=== PATIENT | female | born 1990 | race Caucasian/White ===

== ENCOUNTER 2017-05-25 10:24 | Emergency (ER) | payer BC, OTHER ==
[2017-05-25 10:40] VITALS: RESP 18
[2017-05-25] MEDS ORDERED: cefTRIAXone 1,000 MG VIAL (IM USE) IM STA (10:57)
--- NOTE | 2017-05-25 11:01 | ED ---
General Adult HPI - General Chief complaint: Nausea/Vomiting/Diarrhea Stated complaint: Cold/vomiting Time Seen by Provider: 05/25/17 10:49 Source: patient, RN notes reviewed Mode of arrival: ambulatory Limitations: no limitations - History of Present Illness Initial comments: Patient will be 27-year-old female who is approximately 18 weeks , presents to the emergency room today with a chief complaint of cough congestion over the last 4 days. Patient does admit to also having some symptoms of nausea vomiting diarrhea that started last night. Patient states she is worried about a pneumonia or bronchitis as she states that her mother had similar symptoms this past week. She states that her mother is Better at home. She denies any other complaints or symptoms at this time. Denies any vaginal bleeding discharge. Denies abdominal pain. Patient denies any recent shortness of breath, chest pain, back pain, abdominal pain, numbness or tingling, dysuria or hematuria, constipation, headaches or visual changes, or any other complaints. - Related Data Home Medications Medication Instructions Recorded Confirmed Pnv,Calcium 72/Iron/Folic Acid 1 each PO DAILY 08/22/15 02/28/16 [ Plus Tablet] Acyclovir [Zovirax] 600 mg PO TID 02/03/16 02/28/16 Previous Rx's Medication Instructions Recorded Ibuprofen [Motrin] 600 mg PO Q6HR PRN #30 tab 03/01/16 Azithromycin [Zithromax Z-pack] 0 mg PO DIRECTED #6 tab 05/25/17 Allergies Allergy/AdvReac Type Severity Reaction Status Date / Time No Known Allergies Allergy Verified 05/25/17 10:39 Review of Systems ROS Statement: Those systems with pertinent positive or pertinent negative responses have been documented in the HPI. ROS Other: All systems not noted in ROS Statement are negative. Past Medical History Past Medical History: No Reported History Additional Past Medical History / Comment(s): Ob history: First was an elective termination. This is her second and she has had care with me since 12 weeks. A+, abs neg, Rub Imm, RPR NR, Hep B neg. GBS neg. Abnormal 1hr but normal 3hr GTT. History of Any Multi-Drug Resistant Organisms: None Reported Past Surgical History: No Surgical Hx Reported Past Psychological History: No Psychological Hx Reported Smoking Status: Current every day smoker Past Alcohol Use History: None Reported Past Drug Use History: None Reported - Past Family History Mother Family Medical History: No Reported History General Exam - General Exam Comments Initial Comments: General: The patient is awake and alert, in no distress, and does not appear acutely ill. Eye: Pupils are equal, round and reactive to light, extra-ocular movements are intact. No nystagmus. There is normal conjunctiva bilaterally. No signs of icterus. Ears, nose, mouth and throat: There are moist mucous membranes and no oral lesions. Neck: The neck is supple, there is no tenderness or JVD. Cardiovascular: There is a regular rate and rhythm. No murmur, rub or gallop is appreciated. Respiratory: Lungs are clear to auscultation, respirations are non-labored, breath sounds are equal. No wheezes, stridor, rales, or rhonchi. Gastrointestinal: Soft, non-distended, non-tender abdomen without masses or organomegaly noted. There is no rebound or guarding present. No CVA tenderness. Bowel sounds are unremarkable. Musculoskeletal: Normal ROM, no tenderness. Strength 5/5. Sensation intact. Pulses equal bilaterally 2+. Neurological: A&O x 3. CN II-XII intact, There are no obvious motor or sensory deficits. Coordination appears grossly intact. Speech is normal. Skin: Skin is warm and dry and no rashes or lesions are noted. Psychiatric: Cooperative, appropriate mood & affect, normal judgment. Limitations: no limitations Course Vital Signs 05/25/17 10:37 Temperature 97.3 F L Pulse Rate 73 Respiratory 18 Rate Blood Pressure 110/65 O2 Sat by Pulse 100 Oximetry Medical Decision Making - Medical Decision Making Patient 80 weeks.. No abdominal pain. No vaginal bleeding or discharge. Has had nausea vomiting diarrhea that started yesterday. Abdomen soft nontender on exam. Patient's vital stable. Does admit to cough congestion over the last 4 days. Sputum production. Patient will be covered with azithromycin for a bronchitis infection. Patient requesting shot of antibiotics in the emergency room given dose of Rocephin prior to discharge advised follow-up with her OB/ [employer]. Advised return if symptoms increase worsen or for any other concerns. Disposition Clinical Impression: Acute bronchitis Disposition: HOME SELF-CARE Condition: Good Instructions: Acute Bronchitis (ED) Additional Instructions: Please use medication as discussed. Please follow-up with family doctor in the next 2 days of symptoms have not improved. Please return to emergency room if the symptoms increase or worsen or for any other concerns. Prescriptions: Azithromycin [Zithromax Z-pack] 0 mg PO DIRECTED #6 tab Referrals: Kristen Jacobsen DO [Primary Care Provider] - 1-2 days Time of Disposition: 10:59
[2017-05-25 11:49] LABS: Appearance,Urine Cloudy (Clear); Bilirubin,Urine Negative (Negative); Blood,Urine Negative (Negative); Color,Urine Yellow; Glucose,Urine (UA) Negative (Negative); Ketones,Urine Negative (Negative); Leukocyte Esterase,Urine Negative (Negative); Mucus,Urine Rare /hpf; Nitrite,Urine Negative (Negative); Protein,Urine Negative (Negative); Squamous Epithelial Cell,Urine 13 /hpf (0-4); Urobilinogen,Urine <2.0 mg/dL (<2.0)
[2017-05-25 12:45] VITALS: BP 95/63; PULSE 71; TEMP 98.7
== END 2017-05-25 12:43 | disposition home or self-care (01) ==
LOC: EC 10:24
DX: O99.512 Diseases of the respiratory system complicating pregnancy, second trimester (principal); J20.9 Acute bronchitis, unspecified; O21.9 Vomiting of pregnancy, unspecified; O26.892 Other specified pregnancy related conditions, second trimester; R19.7 Diarrhea, unspecified; O99.332 Smoking (tobacco) complicating pregnancy, second trimester; F17.200 Nicotine dependence, unspecified, uncomplicated; Z79.899 Other long term (current) drug therapy; Z3A.18 18 weeks gestation of pregnancy
CPT/HCPCS: 99284; 96372; 81001; 87086; J0696

== ENCOUNTER 2017-10-09 20:57 | Outpatient (CLI) | payer OTHER ==
[2017-10-09 21:29] VITALS: BP 116/62; PULSE 72; RESP 16; TEMP 96.8
--- NOTE | 2017-10-10 07:29 | P.MSEPDOC ---
Presenting Problems - Arrival Data Date of Arrival on Unit: 10/09/17 Time of Arrival on Unit: 20:57 Mode of Transport: Ambulatory - Complaint OB-Reason for Admission/Chief Complaint: Observation/Evaluation Comment: pain since 1699 Medical History - Information : 3 Para: 1 Term: 1 : 0 Abortions: Spontaneous or Elective: 1 Number of Living Children: 1 - Gestational Age Gestational Age by JASMIN (wks/days): 37 Weeks and 3 Days - History Sexually Transmitted Diseases: HSV Review of Systems - Review of Systems Constitutional: No problems Breast: No problems ENT: No problems Cardiovascular: No problems Respiratory: No problems Gastrointestinal: No problems Genitourinary: No problems Musculoskeletal: No problems Neurological: No problems Skin: No problems Vital Signs - Temperature Temperature: 96.8 F Temperature Source: Temporal Artery Scan - Pulse Right Sitting Brachial Pulse Rate: 72 Pulse Assessment Method: Automatic Cuff - Respirations Respiratory Rate: 16 Oxygen Delivery Method: Room Air O2 Sat by Pulse Oximetry: 99 - Blood Pressure Right Arm Sitting Blood Pressure: 116/62 Blood Pressure Mean: 80 Blood Pressure Source: Automatic Cuff Medical Screen Scoring (Pre) - Cervical Exam Dilation: 1-3 cm = 1 Membranes: Intact - Maternal Vital Signs Maternal Temperature: N/A Maternal Blood Pressure: N/A Signs of Preeclampsia: N/A Maternal Respirations: N/A - Total Score Total Score (Pre): 1 Medical Screen Scoring (Post) - Uterine Contractions Frequency: N/A Duration: N/A Intensity: N/A - Maternal Vital Signs Maternal Temperature: N/A Maternal Blood Pressure: N/A Signs of Preeclampsia: N/A Maternal Respirations: N/A - Maternal Trauma Maternal Trauma: N/A - Assessment Heart Rate: 135 Heart Rate - NICHD Category: Category I (Normal) = 0 NST: Reactive Position: N/A Station: N/A - Total Score Total Score (Post): 0 - Post Treatment Level of Risk Post Treatment Level of Risk: Low (0-5) Physician Notification (Post) - Physician Notified Physician Notified Date: 10/09/17 Physician Notified Time: 21:45 Physician/Practitioner Notified:: DR HUBBARD New Order Received: Yes - Notification Comment Comment: pt is to keep apt for Saturday 10/14 Disposition - Disposition OB Disposition: Discharge to home, Written follow up instructions reviewed Discharge Date: 10/09/17 Discharge Time: 22:00 I agree with the RN Medical Screening Exam: Yes Risk & Benefit of care provided described in d/c instruction: Yes Diagnosis: FALSE LABOR AT OR AFTER 37 COMPLETED WEEKS OF GESTATION
== END 2017-10-09 22:00 | disposition home or self-care (01) ==
LOC: FBPOP 20:57
PROVIDERS: ATTEND Obstetrics & Gynecology
DX: O47.1 False labor at or after 37 completed weeks of gestation (principal); Z3A.37 37 weeks gestation of pregnancy
CPT/HCPCS: 59025; G0463; 99213

== ENCOUNTER 2017-10-12 06:34 | Emergency (ER) | payer OTHER ==
[2017-10-12 06:42] VITALS: BP 112/56; PULSE 78; RESP 18; TEMP 97.9
--- NOTE | 2017-10-12 07:19 | ED ---
General Adult HPI - General Chief complaint: ENT Stated complaint: ENT Time Seen by Provider: 10/12/17 07:00 Source: patient, RN notes reviewed Mode of arrival: ambulatory Limitations: no limitations - History of Present Illness Initial comments: This is a 27 year old female presents emergency Department 9 months . Patient comes in complaining of a sore throat and some ear pressure. Patient also states she has some nasal congestion. Patient states his been ongoing for a few days. Patient denies any difficulty breathing shortness breath. Patient denies any cough or chills. Patient denies any recent fever. Patient denies chest pain or palpitations. Patient denies any swelling to her legs or calf tenderness. - Related Data Previous Rx's Medication Instructions Recorded Amoxicillin 500 mg PO Q8H #30 capsule 10/12/17 Allergies Allergy/AdvReac Type Severity Reaction Status Date / Time No Known Allergies Allergy Verified 05/25/17 12:00 Review of Systems ROS Statement: Those systems with pertinent positive or pertinent negative responses have been documented in the HPI. ROS Other: All systems not noted in ROS Statement are negative. Past Medical History Past Medical History: No Reported History Additional Past Medical History / Comment(s): Ob history: First was an elective termination. This is her second and she has had care with me since 12 weeks. A+, abs neg, Rub Imm, RPR NR, Hep B neg. GBS neg. Abnormal 1hr but normal 3hr GTT. History of Any Multi-Drug Resistant Organisms: None Reported Past Surgical History: No Surgical Hx Reported Past Psychological History: No Psychological Hx Reported Smoking Status: Current every day smoker Past Alcohol Use History: None Reported Past Drug Use History: None Reported - Past Family History Mother Family Medical History: No Reported History General Exam - General Exam Comments Initial Comments: GENERAL: Patient is well-developed and well-nourished. Patient is nontoxic and well- hydrated and is in mild distress. ENT: Neck is soft and supple. Oropharynx is clear. Moist mucous membranes. Neck has full range of motion without eliciting any pain. EYES: The sclera were anicteric and conjunctiva were pink and moist. Extraocular movements were intact and pupils were equal round and reactive to light. Eyelids were unremarkable. PULMONARY: Unlabored respirations. Good breath sounds bilaterally. No audible rales rhonchi or wheezing was noted. CARDIOVASCULAR: There is a regular rate and rhythm without any murmurs gallops or rubs. ABDOMEN: Soft and nontender with normal bowel sounds. No palpable organomegaly was noted. There is no palpable pulsatile mass. SKIN: Skin is clear with no lesions or rashes and otherwise unremarkable. NEUROLOGIC: Patient is alert and oriented x3. Cranial nerves II through XII are grossly intact. Motor and sensory are also intact. Normal speech, volume and content. Symmetrical smile. MUSCULOSKELETAL: Normal extremities with adequate strength and full range of motion. No lower extremity swelling or edema. No calf tenderness. LYMPHATICS: Cervical lymphadenopathy anterior and posterior PSYCHIATRIC: Normal psychiatric evaluation. Normal interpersonal interactions appears functionally intact in deals appropriately with others. No signs of depression. No signs of anxiety. Limitations: no limitations Course Vital Signs 10/12/17 06:39 Temperature 97.9 F Pulse Rate 78 Respiratory 18 Rate Blood Pressure 112/56 O2 Sat by Pulse 100 Oximetry Disposition Clinical Impression: Pharyngitis Disposition: HOME SELF-CARE Condition: Good Instructions: Pharyngitis (ED) Prescriptions: Amoxicillin 500 mg PO Q8H #30 capsule Is patient prescribed a controlled substance at d/c from ED?: No Referrals: Kristen Jacobsen DO [Primary Care Provider] - 1-2 days Time of Disposition: 07:19
== END 2017-10-12 07:51 | disposition home or self-care (01) ==
LOC: EC 06:34
DX: O99.513 Diseases of the respiratory system complicating pregnancy, third trimester (principal); J02.9 Acute pharyngitis, unspecified; O99.89 Other specified diseases and conditions complicating pregnancy, childbirth and the puerperium; R09.81 Nasal congestion; O99.333 Smoking (tobacco) complicating pregnancy, third trimester; F17.200 Nicotine dependence, unspecified, uncomplicated; Z67.10 Type A blood, Rh positive; Z3A.39 39 weeks gestation of pregnancy
CPT/HCPCS: 99282

== ENCOUNTER 2017-10-24 08:21 | Inpatient (IN) | payer OTHER ==
[2017-10-24] MEDS ORDERED: CARBOPROST TROMETHAMINE 250 MCG/ML 1 ML AMP IM PRN (08:55)
[2017-10-24] MEDS ORDERED: OXYTOCIN 10 UNIT/ML 1 ML VIAL IM PRN (08:55)
[2017-10-24] MEDS ORDERED: METHYLERGONOVINE 0.2 MG/ML 1 ML AMP IM PRN (08:55)
[2017-10-24] MEDS ORDERED: TERBUTALINE 1 MG/ML VIAL SQ PRN (08:55)
[2017-10-24] MEDS ORDERED: LIDOCAINE 1% (PF) 10 MG/ML (30 ML SDV) SQ PRN (08:55)
[2017-10-24] MEDS: LACTATED RINGERS 1,000 ML IV SCH ×2 (09:23→10:41)
[2017-10-24 09:29] LABS: Basophils # (A) 0.1 k/uL (0-0.2); Basophils % (A) 0 %; Eosinophils # (A) 0.2 k/uL (0-0.7); Eosinophils % (A) 1 %; HCT 35.4 % (34.0-46.0); Lymphocytes # (A) 3.6 k/uL (1.0-4.8); Lymphocytes % (A) 20 %; MCH 30.2 pg (25.0-35.0); MCV 88.7 fL (80.0-100.0); Monocytes # (A) 1.2 k/uL (0-1.0); Monocytes % (A) 7 %; Neutrophils # (A) 12.9 k/uL (1.3-7.7); Neutrophils % (A) 71 %; Platelet Count 296 k/uL (150-450); RBC 3.99 m/uL (3.80-5.40); RDW 13.5 % (11.5-15.5); WBC 18.2 k/uL (3.8-10.6)
[2017-10-24] MEDS ORDERED: BUPIVACAINE (PF) 0.25% 30 ML VIAL ONE (10:18)
[2017-10-24] MEDS ORDERED: fentaNYL (PF) 50 MCG/ML 5 ML AMP ONE (10:18)
[2017-10-24] MEDS ORDERED: SODIUM CHLORIDE 0.9% 100 ML BAG ONE (10:18)
[2017-10-24] MEDS ORDERED: ROPIVACAINE 100 MG, fentaNYL (PF) 200 MCG in SODIUM CHLORIDE 0.9% 76 ML EPIDURAL ONE (10:48)
[2017-10-24 11:42] VITALS: BMI 26.6
[2017-10-24] MEDS ORDERED: diphenhydrAMINE 25 MG CAP PO PRN (13:14)
[2017-10-24] MEDS ORDERED: SIMETHICONE 80 MG CHEWABLE PO PRN (13:14)
[2017-10-24] MEDS ORDERED: LANOLIN CREAM 5 GM TUBE TOPICAL PRN (13:14)
[2017-10-24] MEDS ORDERED: HYDROCORTISONE 2.5% RECTAL CREAM 30 GM TUBE RECTAL PRN (13:14)
[2017-10-24] MEDS ORDERED: diphenhydrAMINE 50 MG/ML 1 ML VIAL IVP PRN ×2 (13:14)
[2017-10-24] MEDS ORDERED: WITCH HAZEL 1 EACH MED..PAD TOPICAL PRN (13:14)
[2017-10-24] MEDS ORDERED: diphenhydrAMINE 50 MG CAP PO PRN (13:14)
[2017-10-24] MEDS ORDERED: ZOLPIDEM 5 MG TAB PO PRN (13:14)
[2017-10-24] MEDS ORDERED: BENZOCAINE/MENTHOL SPRAY 1 GM/SPRAY AEROSOL TOPICAL PRN (13:14)
[2017-10-24] MEDS ORDERED: OXYTOCIN 20 UNITS/1000 ML NS 1,000 ML IV SCH (13:15)
--- NOTE | 2017-10-24 13:18 | P.HPOB ---
History of Present Illness H&P Date: 10/24/17 Chief Complaint: SROM 27-year-old presented at 39 weeks and 4 days with spontaneous rupture membranes at 2330 on 10/23/2017. She presented on 10/24/2017 around 9 AM, she was patti every 2-4 minutes. Her cervix was 5 centers, 90% effaced, -2 station. heart tones 130-135 with moderate variability and reactive. Review of Systems All systems: negative Constitutional: Denies chills, Denies fever Eyes: denies blurred vision, denies pain Ears, nose, mouth and throat: Denies headache, Denies sore throat Cardiovascular: Denies chest pain, Denies shortness of breath Respiratory: Denies cough Gastrointestinal: Denies abdominal pain, Denies diarrhea, Denies nausea, Denies vomiting Genitourinary: Denies dysuria, Denies hematuria Musculoskeletal: Denies myalgias Integumentary: Denies pruritus, Denies rash Neurological: Denies numbness, Denies weakness Psychiatric: Denies anxiety, Denies depression Endocrine: Denies fatigue, Denies weight change Past Medical History Past Medical History: No Reported History Additional Past Medical History / Comment(s): Ob history: First was an elective termination. Second was a vaginal delivery, 8 pounds. A+ , abs neg, Rub Imm, RPR NR, Hep B neg. GBS neg. normal 1 hour. History of Any Multi-Drug Resistant Organisms: None Reported Past Surgical History: No Surgical Hx Reported Past Anesthesia/Blood Transfusion Reactions: No Reported Reaction Past Psychological History: No Psychological Hx Reported Smoking Status: Current every day smoker Past Alcohol Use History: None Reported Past Drug Use History: None Reported - Past Family History Mother Family Medical History: No Reported History Medications and Allergies Home Medications Medication Instructions Recorded Confirmed Type RX: Acyclovir [Zovirax] 200 mg PO TID 10/24/17 10/24/17 History Allergies Allergy/AdvReac Type Severity Reaction Status Date / Time No Known Allergies Allergy Verified 10/24/17 08:42 Exam Osteopathic Statement: *. No significant issues noted on an osteopathic structural exam other than those noted in the History and Physical/Consult. - Vital Signs Vital signs: Vital Signs Temp Pulse Resp BP 10/24/17 08:49 97.7 F 91 16 110/66 Intake and Output 10/23/17 10/24/17 10/24/17 22:59 06:59 14:59 Other: Weight 70.307 kg Heart: Regular rate and rhythm Lungs: Clear to auscultation bilaterally Abdomen: Soft, nontender Extremities: Negative Homans sign Results Result Diagrams: 10/24/17 09:15 Abnormal Lab Results - Last 24 Hours (Table) 10/24/17 Range/Units 09:15 WBC 18.2 H (3.8-10.6) k/uL Neutrophils # 12.9 H (1.3-7.7) k/uL Monocytes # 1.2 H (0-1.0) k/uL Assessment and Plan (1) Spontaneous rupture of membranes Current Visit: Yes Status: Acute Code(s): [id number] - SNOMED Code(s): 887335441 (2) Normal labor Current Visit: No Status: Resolved Code(s): O80 - ENCOUNTER FOR FULL-TERM UNCOMPLICATED DELIVERY; Z37.9 - OUTCOME OF DELIVERY, UNSPECIFIED SNOMED Code(s ): 88501220 Plan: 1. Expectant management 2. Anticipate normal vaginal delivery
--- NOTE | 2017-10-24 13:20 | P.PROBDLV ---
Vaginal Delivery Note - . Vaginal Delivery Note: 27-year-old presented at 39 weeks and 4 days in labor and with spontaneous rupture of membranes. Her cervix was 5 cm dilated, 90% effaced, and -2 station. She is patti every 2-4 minutes. heart tones 100 3135 with moderate variability and reactive. She did get an epidural and was comfortable. Her cervix was completely dilated at 1255. She pushed, delivered a viable female over intact perineum under epidural anesthesia at 1300. Head delivered OA, anterior shoulder delivered gentle downward guidance followed by posterior shoulder and rest of body. Nose and mouth bulb suctioned , cord clamped and cut, placed mother's abdomen. Apgars 9, 9, weight 7 lbs. 4 oz. Assented delivered spontaneously, intact with three-vessel cord at 1302. Vagina, cervix, perineum inspected. First-degree midline laceration and right labial laceration were repaired with 3-0 Vicryl. Estimated blood loss 150 mL. Mother and baby in stable condition.
[2017-10-24] MEDS: IBUPROFEN 600 MG TAB PO PRN (20:49)
[2017-10-24] MEDS: SENNOSIDES-DOCUSATE SODIUM 1 EACH TAB PO SCH (20:50)
[2017-10-24] MEDS: ACETAMINOPHEN TAB 325 MG TAB PO PRN (23:28)
[2017-10-25] MEDS: IBUPROFEN 600 MG TAB PO PRN ×2 (02:24→10:05)
[2017-10-25 07:48] LABS: Basophils % (A) 0 %; Eosinophils # (A) 0.2 k/uL (0-0.7); Eosinophils % (A) 1 %; HCT 32.6 % (34.0-46.0); HGB 10.9 gm/dL (11.4-16.0); Lymphocytes # (A) 3.8 k/uL (1.0-4.8); Lymphocytes % (A) 22 %; MCHC 33.5 g/dL (31.0-37.0); MCV 89.4 fL (80.0-100.0); Mean Platelet Volume 8.9; Monocytes % (A) 6 %; Neutrophils % (A) 69 %; Platelet Count 280 k/uL (150-450); RBC 3.65 m/uL (3.80-5.40); RDW 13.7 % (11.5-15.5); WBC 17.3 k/uL (3.8-10.6)
[2017-10-25] MEDS: SENNOSIDES-DOCUSATE SODIUM 1 EACH TAB PO SCH (08:15)
[2017-10-25] MEDS: ACETAMINOPHEN TAB 325 MG TAB PO PRN (08:15)
[2017-10-25 08:35] VITALS: BP 118/66; PULSE 84; RESP 16; TEMP 98.6
--- NOTE | 2017-10-25 08:56 | P.DS ---
Providers Date of admission: 10/24/17 08:47 Expected date of discharge: 10/25/17 Attending physician: Cassi Burns Primary care physician: Stated None - Discharge Diagnosis(es) (1) Spontaneous rupture of membranes Current Visit: Yes Status: Resolved (2) Normal vaginal delivery Current Visit: No Status: Acute Hospital Course: Patient presented in active labor with spontaneous rupture membranes. She underwent normal vaginal delivery. Her course was uncomplicated. She'll be discharged home day #1 in stable condition to follow-up with me in 6 weeks. Plan - Discharge Summary New Discharge Prescriptions: New Ibuprofen [Motrin] 600 mg PO Q6HR PRN #30 tab PRN Reason: Mild Pain Or Fever >= 100.5 No Action Acyclovir [Zovirax] 200 mg PO TID Discharge Medication List Acyclovir [Zovirax] 200 mg PO TID 10/24/17 [History] Ibuprofen [Motrin] 600 mg PO Q6HR PRN #30 tab 10/25/17 [Rx] Follow up Appointment(s)/Referral(s): Cassi Burns DO [Doctor of Osteopathic Medicine] - 6 Weeks Discharge Disposition: HOME SELF-CARE
--- NOTE | 2017-10-25 09:11 | P.MSEPDOC ---
Presenting Problems - Arrival Data Date of Arrival on Unit: 10/24/17 Time of Arrival on Unit: 09:00 Mode of Transport: Ambulatory - Complaint OB-Reason for Admission/Chief Complaint: Possible Onset of Labor Medical History - Information : 3 Para: 1 Term: 1 : 0 Abortions: Spontaneous or Elective: 1 Number of Living Children: 1 - Gestational Age Gestational Age by JASMIN (wks/days): 39 Weeks and 4 Days - History Complications: Smoker Review of Systems - Review of Systems Constitutional: No problems Breast: No problems ENT: No problems Cardiovascular: No problems Respiratory: No problems Gastrointestinal: No problems Genitourinary: No problems Musculoskeletal: No problems Neurological: No problems Skin: No problems Vital Signs - Temperature Temperature: 98.6 F Temperature Source: Oral - Pulse Right Brachial Pulse Rate: 84 Pulse Assessment Method: Automatic Cuff - Respirations Respiratory Rate: 16 Oxygen Delivery Method: Room Air - Blood Pressure Right Arm Blood Pressure: 118/66 Blood Pressure Mean: 83 Blood Pressure Source: Automatic Cuff Medical Screen Scoring (Pre) - Cervical Exam Dilation: 4-7 cm = 2 Effacement: More than 50% = 2 Membranes: Ruptured = 3 - Uterine Contractions Frequency: > or = 36 weeks =2 Duration: > 40 seconds = 2 Intensity: Contraction palpated strong = 1 - Maternal Vital Signs Maternal Temperature: N/A Maternal Blood Pressure: N/A Signs of Preeclampsia: N/A Maternal Respirations: N/A - Pain Assessment Pain Location and Character: Abdomen Pain Scale Used: Numeric (1 - 10) Pain Intensity: 8 Pain Management Goal: 2 Pain Description: *Acute Pain Radiation Location: na Pain Frequency: Intermittent Pain Duration: 2 Pain Duration Units: Minutes Pain Behavior: Vocalization Pain Aggravating Factors: None Non-Pharmacological Interventions: Reduce Environmental Stimuli - Maternal Trauma Maternal Trauma: N/A - Assessment Baseline FHR: 125 Heart Rate - NICHD Category: Category I (Normal) = 0 NST: Reactive Position: N/A - Total Score Total Score (Pre): 12 - Level of Risk Level of Risk: High (10+) Physician Notification (Pre) - Physician Notified Physician Notified Date: 10/24/17 Physician Notified Time: 08:53 Physician/Practitioner Notifed:: Dr. Burns Spoke With: Dr. Burns New Order Received: Yes - Notification Comment Comment: admit for labor Disposition - Disposition OB Disposition: Admit I agree with the RN Medical Screening Exam: Yes Risk & Benefit of care provided described in d/c instruction: Yes Diagnosis: ENCOUNTER FOR FULL-TERM UNCOMPLICATED DELIVERY
== END 2017-10-25 13:10 | disposition home or self-care (01) | DRG 774 ==
LOC: FBPOP 08:21 → 4FBP 08:47
PROVIDERS: ADMIT Obstetrics & Gynecology; ATTEND Obstetrics & Gynecology
PROC: 10E0XZZ Delivery of Products of Conception, External Approach (ICD-10-PCS; principal; 2017-10-24)
PROC: 0HQ9XZZ Repair Perineum Skin, External Approach (ICD-10-PCS; 2017-10-24)
PROC: 00HU33Z Insertion of Infusion Device into Spinal Canal, Percutaneous Approach (ICD-10-PCS; 2017-10-24)
PROC: 3E0R3BZ Introduction of Anesthetic Agent into Spinal Canal, Percutaneous Approach (ICD-10-PCS; 2017-10-24)
DX: O70.0 First degree perineal laceration during delivery (principal); O98.319 Other infections with a predominantly sexual mode of transmission complicating pregnancy, unspecified trimester; Z37.0 Single live birth; O99.334 Smoking (tobacco) complicating childbirth; F17.200 Nicotine dependence, unspecified, uncomplicated; Z71.6 Tobacco abuse counseling; Z3A.39 39 weeks gestation of pregnancy; Z79.899 Other long term (current) drug therapy
CPT/HCPCS: 59025; 84112; 85025; 99213

== ENCOUNTER 2018-06-11 06:18 | Emergency (ER) | payer OTHER ==
[2018-06-11 07:18] LABS: Basophils % (A) 0 %; Eosinophils # (A) 0.3 k/uL (0-0.7); Eosinophils % (A) 3 %; HCT 43.6 % (34.0-46.0); Lymphocytes # (A) 2.7 k/uL (1.0-4.8); Lymphocytes % (A) 26 %; MCHC 32.2 g/dL (31.0-37.0); MCV 90.1 fL (80.0-100.0); Mean Platelet Volume 7.4; Monocytes # (A) 0.5 k/uL (0-1.0); Monocytes % (A) 5 %; Neutrophils # (A) 6.9 k/uL (1.3-7.7); Neutrophils % (A) 65 %; Platelet Count 305 k/uL (150-450); RBC 4.84 m/uL (3.80-5.40); RDW 12.8 % (11.5-15.5); WBC 10.6 k/uL (3.8-10.6)
[2018-06-11 07:29] LABS: Albumin 4.3 g/dL (3.5-5.0); Chloride 110 mmol/L (98-107); Glucose 114 mg/dL (74-99); Potassium 4.4 mmol/L (3.5-5.1); Total Protein 6.7 g/dL (6.3-8.2)
[2018-06-11 07:30] LABS: ALT 27 U/L (9-52); AST 19 U/L (14-36); Alkaline Phosphatase 54 U/L (38-126); Anion Gap 8 mmol/L; Blood Urea Nitrogen 15 mg/dL (7-17); Calcium 9.7 mg/dL (8.4-10.2); Carbon Dioxide 24 mmol/L (22-30); Sodium 142 mmol/L (137-145); Total Bilirubin 0.4 mg/dL (0.2-1.3)
--- NOTE | 2018-06-11 07:31 | ED ---
Female Urogenital HPI - General Chief complaint: Vaginal Bleeding Stated complaint: poss miscarriage Time Seen by Provider: 06/11/18 06:57 Source: patient, family, RN notes reviewed, old records reviewed Mode of arrival: ambulatory Limitations: no limitations - History of Present Illness Initial comments: Patient is a 28-year-old female who presents emergency Department with complaints of possible miscarriage. Patient states that she started to have vaginal bleeding starting at 3 AM. She reports she found she was last week. She does complain of some mild cramping at this time. Patient states that she is a female with a previous elective when she was younger. Patient states her RELIGIOUS ASSISTANT is Dr. Burns. Her last menstrual period was May 13. - Related Data Home Medications Medication Instructions Recorded Confirmed No Known Home Medications 06/11/18 06/11/18 Allergies Allergy/AdvReac Type Severity Reaction Status Date / Time No Known Allergies Allergy Verified 06/11/18 08:02 Review of Systems ROS Statement: Those systems with pertinent positive or pertinent negative responses have been documented in the HPI. ROS Other: All systems not noted in ROS Statement are negative. Past Medical History Past Medical History: No Reported History Additional Past Medical History / Comment(s): Ob history: First was an elective termination. Second was a vaginal delivery, 8 pounds. A+ , abs neg, Rub Imm, RPR NR, Hep B neg. GBS neg. normal 1 hour. History of Any Multi-Drug Resistant Organisms: None Reported Past Surgical History: No Surgical Hx Reported Past Anesthesia/Blood Transfusion Reactions: No Reported Reaction Past Psychological History: No Psychological Hx Reported Smoking Status: Current every day smoker Past Alcohol Use History: None Reported Past Drug Use History: None Reported - Past Family History Mother Family Medical History: No Reported History General Exam - General Exam Comments Initial Comments: Pleasant 28-year-old female. Alert and oriented. No distress. Limitations: no limitations General appearance: alert, in no apparent distress Head exam: Present: atraumatic, normocephalic, normal inspection Eye exam: Present: normal appearance, PERRL, EOMI. Absent: scleral icterus, conjunctival injection, periorbital swelling ENT exam: Present: normal exam, mucous membranes moist Neck exam: Present: normal inspection. Absent: tenderness, meningismus, lymphadenopathy Respiratory exam: Present: normal lung sounds bilaterally Cardiovascular Exam: Present: regular rate, normal rhythm, normal heart sounds. Absent: systolic murmur, diastolic murmur, rubs, gallop, clicks GI/Abdominal exam: Present: soft, normal bowel sounds. Absent: distended, tenderness, guarding, rebound, rigid Extremities exam: Present: normal inspection, full ROM, normal capillary refill. Absent: tenderness, pedal edema, joint swelling, calf tenderness Back exam: Present: normal inspection Neurological exam: Present: alert, oriented X3, CN II-XII intact Psychiatric exam: Present: normal affect, normal mood Skin exam: Present: warm Course Vital Signs 06/11/18 06:20 Temperature 97.9 F Pulse Rate 89 Respiratory 20 Rate Blood Pressure 120/84 O2 Sat by Pulse 98 Oximetry Medical Decision Making - Medical Decision Making Patient is a 28-year-old female presents return today with concerns for miscarriage. She states she had a positive test one week ago. At this time patient's hCG levels less than 2. Ultrasound was negative for IUP or any other abnormalities. Patient's labwork was unremarkable. Pelvic exam shows bleeding. But no other abnormal discharge. I did obtain cultures. She denies dysuria or other complaints. Patient advised that this is just likely her menstrual cycle. She had a false positive test week ago. Discussed the Patient to return to emergency department if any alarming signs or symptoms occur. Discussed following up with PCP. - Lab Data Result diagrams: 06/11/18 06:41 06/11/18 06:41 Lab Results 06/11/18 06/11/18 06/11/18 Range/Units 06:41 06:41 06:41 WBC 10.6 (3.8-10.6) k/uL RBC 4.84 (3.80-5.40) m/uL Hgb 14.0 (11.4-16.0) gm/dL Hct 43.6 (34.0-46.0) % MCV 90.1 (80.0-100.0) fL MCH 29.0 (25.0-35.0) pg MCHC 32.2 (31.0-37.0) g/dL RDW 12.8 (11.5-15.5) % Plt Count 305 (150-450) k/uL Neutrophils % 65 % Lymphocytes % 26 % Monocytes % 5 % Eosinophils % 3 % Basophils % 0 % Neutrophils # 6.9 (1.3-7.7) k/uL Lymphocytes # 2.7 (1.0-4.8) k/uL Monocytes # 0.5 (0-1.0) k/uL Eosinophils # 0.3 (0-0.7) k/uL Basophils # 0.0 (0-0.2) k/uL Sodium 142 (137-145) mmol/L Potassium 4.4 (3.5-5.1) mmol/L Chloride 110 H (98-107) mmol/L Carbon Dioxide 24 (22-30) mmol/L Anion Gap 8 mmol/L BUN 15 (7-17) mg/dL Creatinine 0.70 (0.52-1.04) mg/dL Est GFR (CKD-EPI)AfAm >90 (>60 ml/min/1.73 sqM) Est GFR (CKD-EPI)NonAf >90 (>60 ml/min/1.73 sqM) Glucose 114 H (74-99) mg/dL Calcium 9.7 (8.4-10.2) mg/dL Total Bilirubin 0.4 (0.2-1.3) mg/dL AST 19 (14-36) U/L ALT 27 (9-52) U/L Alkaline Phosphatase 54 (38-126) U/L Total Protein 6.7 (6.3-8.2) g/dL Albumin 4.3 (3.5-5.0) g/dL HCG, Quant <2.4 mIU/mL Blood Type A Positive Blood Type Recheck No - Radiology Data Radiology results: report reviewed Normal transvaginal ultrasound. No evidence of intrauterine . Correlate with that she G levels. Disposition Clinical Impression: Menstruation Disposition: HOME SELF-CARE Condition: Good Instructions (If sedation given, give patient instructions): Menstruation (ED) Additional Instructions: Follow-up with her primary care physician. Return to the emergency department if any alarming signs or symptoms occur. Is patient prescribed a controlled substance at d/c from ED?: No Referrals: Kristen Jacobsen DO [Primary Care Provider] - 1-2 days Time of Disposition: 09:01
[2018-06-11 07:46] LABS: HCG,Quantitative Serum <2.4 mIU/mL
--- NOTE | 2018-06-11 08:37 | US ---
EXAMINATION TYPE: Transabdominal DATE OF EXAM: 08/12/17 COMPARISON: NONE CLINICAL HISTORY: Pain. spotting x yesterday EXAM PERFORMED: Transvaginal (TV) and Transabdominal (TA) EXAM MEASUREMENTS: GESTATIONAL AGE / DATING Dates by LMP: (4 weeks/1 days) EDC: 05/13/2018 Dates by Current Scan for: No IUP seen at this time MATERNAL ANATOMY Uterus: 8.0 x 5.3 x 4.8 cm Right Ovary: 3.4 x 2.2 x 2.4 cm Left Ovary: 2.8 x 1.9 x 2.0 cm Post CDS / Adnexa: no free fluid Presence of free fluid: no Presence of corpus luteal cyst: no Presence of subchorionic bleed: no GESTATION / SURVEY IUP: No IUP seen at this time Date of LMP: 05/13/2018, A1 Beta HcG (if available): <2.4 No gestational sac, yolk sac or crown-rump length pole identified. IMPRESSION: 1. Normal-appearing pelvic ultrasound. 2. Early is not excluded. Correlation with beta-hCG and follow-up ultrasounds are recommend ed.
[2018-06-11 09:12] VITALS: BP 111/80; PULSE 79; RESP 16; TEMP 98
[2018-06-12 15:59] LABS: C. trachomatis,PCR Negative (Neg,Equiv); Chlamydia trachomatis Source Vagina
[2018-06-12 16:04] LABS: N. gonorrhoeae,PCR Negative (Neg,Equiv); Neisseria Source Vagina
== END 2018-06-11 09:08 | disposition home or self-care (01) ==
LOC: EC 06:18
DX: N92.6 Irregular menstruation, unspecified (principal); F17.200 Nicotine dependence, unspecified, uncomplicated
CPT/HCPCS: 36415; 76801; 76817; 80053; 84702; 85025; 86900; 86901; 87491; 87591; 87808; 99284

== ENCOUNTER → 2018-08-12 | Outpatient (CLI) | payer OTHER ==
[2018-08-12 14:31] LABS: HCT 38.7 % (34.0-46.0); MCH 29.1 pg (25.0-35.0); MCHC 33.6 g/dL (31.0-37.0); MCV 86.6 fL (80.0-100.0); Mean Platelet Volume 7.5; Platelet Count 298 k/uL (150-450); RBC 4.46 m/uL (3.80-5.40); RDW 13.3 % (11.5-15.5); WBC 11.3 k/uL (3.8-10.6)
[2018-08-12 14:38] LABS: Glucose 63 mg/dL (74-99)
--- NOTE | 2018-08-12 15:50 | US ---
EXAMINATION TYPE: Transabdominal DATE OF EXAM: 08/12/2018 2:04 PM COMPARISON: NONE CLINICAL HISTORY: Z36 CONFIRM DATES; smoker EXAM PERFORMED: Transabdominal (TA) EXAM MEASUREMENTS: GESTATIONAL AGE / DATING Physician Established: (8 weeks/6 days) EDC: 03/18/2019 Dates by LMP: (8 weeks/6 days) EDC: 03/18/2019 Dates by First Scan: No previous Dates by Current Scan for: (8 weeks/2 days) EDC: 03/22/2019 MATERNAL ANATOMY Uterus: 11.9 x 8.1 x 6.6cm Right Ovary: 4.6 x 2.0 x 1.8cm Left Ovary: not seen Post CDS / Adnexa: wnl Presence of free fluid: no Presence of corpus luteal cyst: not identified Presence of subchorionic bleed: circular, anechoic area is seen at inferior subchorionic area = 0.7 x 0.8 x 0.6cm GESTATION / SURVEY CRL: 1.8cm (8 weeks/2 days) Yolk Sac (normal less than 6mm): 3.8mm Heart Rate: 169 bpm Rhythm: Normal IUP: Viable IUP Date of LMP: 06/11/2018 Beta HcG (if available): NA Single, viable IUP,8 weeks/2 days, EDC: 03/22/2019, HR 169bpm IMPRESSION: Single, viable IUP,8 weeks/2 days, EDC: 03/22/2019, HR 169bpm. There is a 8 mm subchorionic hemorrhag e.
== END ==
LOC: RADUSWWP 13:41
PROVIDERS: ATTEND Obstetrics & Gynecology
DX: Z36.9 Encounter for antenatal screening, unspecified (principal); Z34.81 Encounter for supervision of other normal pregnancy, first trimester; Z3A.08 8 weeks gestation of pregnancy
CPT/HCPCS: 36415; 76801; 82565; 82947; 85027; 86762; 86780; 86850; 86900; 86901; 87340

== ENCOUNTER → 2020-02-07 | Outpatient (CLI) | payer OTHER ==
--- NOTE | 2020-02-07 15:57 | US ---
EXAMINATION TYPE: US OB >= 14 wk fetus DATE OF EXAM: 02/07/2020 COMPARISON: None CLINICAL HISTORY: Z36 confrim dates Dates TECHNIQUE: Transabdominal (TA) GESTATIONAL AGE / DATING Dates by LMP: (16 weeks/0 days) EDC: 07/24/2020 Dates by First Scan: No previous this is first scan Dates by Current Scan: (16 weeks/3 days) EDC: 07/21/2020 Beta HCG (if available): Not available at this time SURVEY IUP: Single PLACENTA: Anterior PREVIA: No Previa [place]: 10.7 cm Normal CERVICAL LENGTH (transabdominal: norm > 3.0cm): 3.9 cm BIOMETRY PRESENTATION: Vertex BPD: 3.4 cm 16 weeks / 3 days HC: 11.9 cm 15 weeks / 6 days AC: 10.7 cm 16 weeks / 4 days FL: 2.0 cm 16 weeks / 1 days ESTIMATED WEIGHT IN GRAMS: 152.4 grams ESTIMATED WEIGHT IN LBS/OZ: 0 lbs. 5 oz. WEIGHT PERCENTAGE BASED ON ESTABLISHED DATES: 63.4% HC/AC: 1.1 Normal FL/AC: 19.1 Normal HEART RATE: 143 bpm RHYTHM: Normal Single live IUP measuring 16 weeks 3 days. IMPRESSION: 1. Single intrauterine gestation estimated at 16 weeks 3 days gestation based on current ultrasound m easurements. Cardiac activity measures 143 bpm. 2. Femur length to head circumference ratio is elevated above the normal range at 17.13. Normal 13.86 , 216.97 at this age.
== END | disposition home or self-care (01) ==
LOC: RADUSWWP 09:04
PROVIDERS: ATTEND Obstetrics & Gynecology
DX: Z36.9 Encounter for antenatal screening, unspecified (principal); Z3A.16 16 weeks gestation of pregnancy
CPT/HCPCS: 76805

== ENCOUNTER 2020-02-24 05:42 | Emergency (ER) | payer OTHER ==
[2020-02-24 05:49] VITALS: RESP 18
[2020-02-24] MEDS ORDERED: diphenhydrAMINE 50 MG CAP PO STA (06:27)
--- NOTE | 2020-02-24 06:45 | ED ---
URI HPI - General Chief Complaint: Upper Respiratory Infection Stated Complaint: SOB Time Seen by Provider: 02/24/20 06:00 Source: patient Mode of arrival: ambulatory Limitations: no limitations - History of Present Illness Initial Comments: Ananda, 30yo female currently ~28 weeks presenting to the ER for cc of cough. States she has had congestion, cough x 1 week. She states it initally began with sore throat, body aches and ear pain. She states that these symptoms have resolved but Friday her cough began. Patient states she has been taking cold medicines as directed by her OBGYN/what she found online. Patient states that she continues to cough. She states she is sore from coughing so much. PT continues to smoke and states she has increased her smoking. Patient denies chest pressure/inspiratory chest pain, leg swelling or hemoptysis. Denies vomiting, admits to diarrhea (states it is infrequent). Covid tested last week (-). Patient upon arrival has obvious URI symptoms, coughing in room. She appears well nontoxic however. No distress. - Related Data Previous Rx's Medication Instructions Recorded Azithromycin [Zithromax Z-pack (6 0 mg PO DIRECTED #6 tab 02/24/20 tabs)] Allergies Allergy/AdvReac Type Severity Reaction Status Date / Time No Known Allergies Allergy Verified 02/24/20 05:49 Review of Systems ROS Statement: Those systems with pertinent positive or pertinent negative responses have been documented in the HPI. ROS Other: All systems not noted in ROS Statement are negative. Past Medical History Past Medical History: No Reported History Additional Past Medical History / Comment(s): Ob history: First was an elective termination. Second was a vaginal delivery, 8 pounds. A+, abs neg, Rub Imm, RPR NR, Hep B neg. GBS neg. normal 1 hour. History of Any Multi-Drug Resistant Organisms: None Reported Past Surgical History: No Surgical Hx Reported Past Anesthesia/Blood Transfusion Reactions: No Reported Reaction Past Psychological History: No Psychological Hx Reported Smoking Status: Current every day smoker Past Alcohol Use History: None Reported Past Drug Use History: None Reported - Past Family History Mother Family Medical History: No Reported History General Exam - General Exam Comments Initial Comments: General: The patient is awake and alert, in no distress Eye: Pupils are equal, round and reactive to light, extra-ocular movements are intact. No nystagmus. There is normal conjunctiva bilaterally. No signs of icterus. Ears, nose, mouth and throat: There are moist mucous membranes and no oral le sions. Oropharynx nonerythematous uvula midline no tonsillar exudates. Neck: The neck is supple, there is no tenderness or JVD. No nuchal rigidity Cardiovascular: There is a regular rate and rhythm. No murmur, rub or gallop is appreciated. Respiratory: Lungs are clear to auscultation, respirations are non-labored, breath sounds are equal. No wheezes, stridor, rales, or rhonchi. Gastrointestinal: Soft, non-tender abdomen without masses or organomegaly noted. There is no rebound or guarding present. Musculoskeletal: Normal ROM, no tenderness. Strength 5/5. Sensation intact. Radial pulses equal bilaterally 2+. Neurological: A&O x 3. CN II-XII intact grossly, There are no obvious motor or sensory deficits. Coordination appears grossly intact. Speech is normal. Skin: Skin is warm and dry and no rashes or lesions are noted. Psychiatric: Cooperative, appropriate mood & affect, normal judgment. Limitations: no limitations Course Vital Signs 02/24/20 05:47 Temperature 98.6 F Pulse Rate 90 Respiratory 18 Rate Blood Pressure 133/76 O2 Sat by Pulse 99 Oximetry Medical Decision Making - Medical Decision Making 30yo female presenting for cc of cough. URI symptoms. Nasal congestion, cough appreciated on exam. Lungs clear. HR WNL. Pt does not appear in respiratory distress. Pt requesting CXR. Patient educated on risk vs benefit. Discussed with attending and will proceed with CXR. CXR mild patchy left lung base infiltrate. Patient will be treated with azithromycin. patient case discussed with attending and pt will be discharge with instruction to take antibiotics as discussed as well as continue symptomatic treatment as directed by OBGYN and PCP f/u. Patient is to return for fever, worsening symptoms/SOB. heart tones: Disposition Clinical Impression: URI (upper respiratory infection), Pneumonia Disposition: HOME SELF-CARE Condition: Good Instructions (If sedation given, give patient instructions): Pneumonia (ED) Additional Instructions: Please use medication as discussed. Please follow-up with family doctor in the next 2 days. Please return to emergency room if the symptoms increase or worsen or for any other concerns. Prescriptions: Azithromycin [Zithromax Z-pack (6 tabs)] 0 mg PO DIRECTED #6 tab Is patient prescribed a controlled substance at d/c from ED?: No Referrals: Kristen Jacobsen DO [Primary Care Provider] - 1-2 days Time of Disposition: 07:18
--- NOTE | 2020-02-24 06:49 | XR ---
EXAM: XR Chest, 2 Views CLINICAL HISTORY: Cough. TECHNIQUE: Frontal and lateral views of the chest. COMPARISON: No relevant prior studies available. FINDINGS: Lungs: Mild patchy infiltration in the left lung base. Pleural space: Unremarkable. No pneumothorax. No pleural fluid. Heart: Unremarkable. No cardiomegaly. Mediastinum: Unremarkable. Bones/joints: Unremarkable. No acute abnormalities. IMPRESSION: Mild patchy infiltration in the left lung base.
[2020-02-24 07:25] VITALS: BP 117/81; PULSE 67; TEMP 98
== END 2020-02-24 07:24 | disposition home or self-care (01) ==
LOC: EC 05:42
DX: O99.512 Diseases of the respiratory system complicating pregnancy, second trimester (principal); J18.9 Pneumonia, unspecified organism; J06.9 Acute upper respiratory infection, unspecified; O99.332 Smoking (tobacco) complicating pregnancy, second trimester; F17.200 Nicotine dependence, unspecified, uncomplicated; Z3A.28 28 weeks gestation of pregnancy
CPT/HCPCS: 71046; 99284

== ENCOUNTER 2020-03-01 15:25 | Emergency (ER) | payer OTHER ==
[2020-03-01 15:29] VITALS: BP 125/79; PULSE 103; RESP 16; TEMP 97.6
[2020-03-01] MEDS ORDERED: SODIUM CHLORIDE 0.9% 1,000 ML IV STA (15:44)
--- NOTE | 2020-03-01 16:41 | ED ---
General Adult HPI - General Chief complaint: Dizziness Stated complaint: lightheaded/dizziness 18 wks preg Time Seen by Provider: 03/01/20 15:33 Source: patient, RN notes reviewed Mode of arrival: ambulatory Limitations: no limitations - History of Present Illness Initial comments: 30-year-old female presents to the emergency room for a chief complaint of dizziness and lightheadedness. Patient reports she has been sick with a cough and congestion for about 2 weeks. States one week ago she was diagnosed with pneumonia and treated with azithromycin. She states her cough is improving however she returned to work today and had an episode of dizziness. She states she felt very lightheaded. Patient reports that this resolved shortly after however her doctor had told her if she has any worsening symptoms to go to the emergency room. Patient was tested Covid negative. She has not had any fevers.Patient has no other complaints at this time including shortness of breath, chest pain, abdominal pain, nausea or vomiting, headache, or visual hollins ges. - Related Data Home Medications Medication Instructions Recorded Confirmed Pnv,Calcium 72/Iron/Folic Acid 1 tab PO DAILY 03/01/20 03/01/20 [ Plus Tablet] Pseudoephedrine [Sudafed] 30 mg PO Q4H PRN 03/01/20 03/01/20 diphenhydrAMINE [Benadryl] 25 mg PO Q4H PRN 03/01/20 03/01/20 Previous Rx's Medication Instructions Recorded Cephalexin [Keflex] 500 mg PO BID 7 Days #14 cap 03/01/20 Allergies Allergy/AdvReac Type Severity Reaction Status Date / Time No Known Allergies Allergy Verified 03/01/20 16:52 Review of Systems ROS Statement: Those systems with pertinent positive or pertinent negative responses have been documented in the HPI. ROS Other: All systems not noted in ROS Statement are negative. Past Medical History Past Medical History: No Reported History Additional Past Medical History / Comment(s): Ob history: First was an elective termination. Second was a vaginal delivery, 8 pounds. A+, abs neg, Rub Imm, RPR NR, Hep B neg. GBS neg. normal 1 hour. History of Any Multi-Drug Resistant Organisms: None Reported Past Surgical History: No Surgical Hx Reported Past Anesthesia/Blood Transfusion Reactions: No Reported Reaction Past Psychological History: No Psychological Hx Reported Smoking Status: Current every day smoker Past Alcohol Use History: None Reported Past Drug Use History: None Reported - Past Family History Mother Family Medical History: No Reported History General Exam Limitations: no limitations General appearance: alert, in no apparent distress Head exam: Present: atraumatic, normocephalic, normal inspection Eye exam: Present: normal appearance ENT exam: Present: normal exam, mucous membranes moist Neck exam: Present: normal inspection, full ROM. Absent: tenderness, meningismus, lymphadenopathy Respiratory exam: Present: normal lung sounds bilaterally. Absent: respiratory distress, wheezes, rales, rhonchi, stridor Cardiovascular Exam: Present: regular rate, normal rhythm, normal heart sounds. Absent: systolic murmur, diastolic murmur, rubs, gallop, clicks GI/Abdominal exam: Present: soft, normal bowel sounds. Absent: distended, tenderness, guarding, rebound, rigid Neurological exam: Present: alert, oriented X3, normal gait Course Vital Signs 03/01/20 15:27 Temperature 97.6 F Pulse Rate 103 H Respiratory 16 Rate Blood Pressure 125/79 O2 Sat by Pulse 99 Oximetry EKG Findings - EKG Comments: EKG Findings:: Normal sinus rhythm, ventricular rate 76, MA interval 158, QTC 414 Medical Decision Making - Medical Decision Making Vitals are stable. CBC shows mild cytosis which is likely reactive. CMP unremarkable. Patient will be treated for possible urinary tract infection. Culture pending. Chest x-ray was repeated and shows improvement of bibasilar opacities without significant residual. Patient was given fluids and is feeling much better. Patient has an appointment with her doctor tomorrow afternoon. Patient will be given work off until that time. Patient will return here for any worsening symptoms. heart tones 140s. I discussed this case with attending Dr. Okeefe who agrees with this assessment and treatment plan. - Lab Data Result diagrams: 03/01/20 16:30 03/01/20 16:30 Lab Results 03/01/20 03/01/20 03/01/20 Range/Units 16:30 16:30 16:30 WBC 14.2 H (3.8-10.6) k/uL RBC 4.12 (3.80-5.40) m/uL Hgb 12.6 (11.4-16.0) gm/dL Hct 37.9 (34.0-46.0) % MCV 92.1 (80.0-100.0) fL MCH 30.5 (25.0-35.0) pg MCHC 33.2 (31.0-37.0) g/dL RDW 12.6 (11.5-15.5) % Plt Count 294 (150-450) k/uL Neutrophils % 73 % Lymphocytes % 20 % Monocytes % 5 % Eosinophils % 2 % Basophils % 0 % Neutrophils # 10.4 H (1.3-7.7) k/uL Lymphocytes # 2.8 (1.0-4.8) k/uL Monocytes # 0.7 (0-1.0) k/uL Eosinophils # 0.2 (0-0.7) k/uL Basophils # 0.1 (0-0.2) k/uL Sodium 135 L (137-145) mmol/L Potassium 4.0 (3.5-5.1) mmol/L Chloride 108 H (98-107) mmol/L Carbon Dioxide 23 (22-30) mmol/L Anion Gap 4 mmol/L BUN 9 (7-17) mg/dL Creatinine 0.52 (0.52-1.04) mg/dL Est GFR (CKD-EPI)AfAm >90 (>60 ml/min/1.73 sqM) Est GFR (CKD-EPI)NonAf >90 (>60 ml/min/1.73 sqM) Glucose 81 (74-99) mg/dL Calcium 9.1 (8.4-10.2) mg/dL Total Bilirubin 0.3 (0.2-1.3) mg/dL AST 18 (14-36) U/L ALT 12 (4-34) U/L Alkaline Phosphatase 50 (38-126) U/L Total Protein 6.1 L (6.3-8.2) g/dL Albumin 3.6 (3.5-5.0) g/dL Urine Color Yellow Urine Appearance Cloudy H (Clear) Urine pH 6.0 (5.0-8.0) Ur Specific [place] 1.037 H (1.001-1.035) Urine Protein Trace H (Negative) Urine Glucose (UA) Negative (Negative) Urine Ketones Negative (Negative) Urine Blood Negative (Negative) Urine Nitrite Negative (Negative) Urine Bilirubin Negative (Negative) Urine Urobilinogen 2.0 (<2.0) mg/dL Ur Leukocyte Esterase Negative (Negative) Urine RBC 8 H (0-5) /hpf Urine WBC 6 H (0-5) /hpf Ur Squamous Epith Cells 8 H (0-4) /hpf Urine Bacteria Many H (None) /hpf Urine Mucus Many H (None) /hpf Disposition Clinical Impression: Lightheaded Disposition: HOME SELF-CARE Condition: Good Instructions (If sedation given, give patient instructions): Dizziness (ED) Additional Instructions: Please drink any of fluids. Take antibiotic as directed for slight urinary tract infection. Follow-up with your doctor at your appointment tomorrow. If you have any worsening symptoms return to the emergency room. Prescriptions: Cephalexin [Keflex] 500 mg PO BID 7 Days #14 cap Is patient prescribed a controlled substance at d/c from ED?: No Referrals: Kristen Jacobsen DO [Primary Care Provider] - 1-2 days Time of Disposition: 18:20
[2020-03-01 16:43] LABS: Basophils # (A) 0.1 k/uL (0-0.2); Basophils % (A) 0 %; Eosinophils # (A) 0.2 k/uL (0-0.7); Eosinophils % (A) 2 %; HCT 37.9 % (34.0-46.0); HGB 12.6 gm/dL (11.4-16.0); Lymphocytes # (A) 2.8 k/uL (1.0-4.8); Lymphocytes % (A) 20 %; MCH 30.5 pg (25.0-35.0); MCHC 33.2 g/dL (31.0-37.0); MCV 92.1 fL (80.0-100.0); Mean Platelet Volume 7.6; Monocytes # (A) 0.7 k/uL (0-1.0); Monocytes % (A) 5 %; Neutrophils # (A) 10.4 k/uL (1.3-7.7); Neutrophils % (A) 73 %; Platelet Count 294 k/uL (150-450); RBC 4.12 m/uL (3.80-5.40); RDW 12.6 % (11.5-15.5); WBC 14.2 k/uL (3.8-10.6)
[2020-03-01 16:51] LABS: ALT 12 U/L (4-34); AST 18 U/L (14-36); African American GFR (CKD) >90 (>60 ml/min/1.73 sqM); Albumin 3.6 g/dL (3.5-5.0); Alkaline Phosphatase 50 U/L (38-126); Anion Gap 4 mmol/L; Blood Urea Nitrogen 9 mg/dL (7-17); Calcium 9.1 mg/dL (8.4-10.2); Carbon Dioxide 23 mmol/L (22-30); Chloride 108 mmol/L (98-107); Glucose 81 mg/dL (74-99); Non-African American GFR(CKD) >90 (>60 ml/min/1.73 sqM); Sodium 135 mmol/L (137-145); Total Bilirubin 0.3 mg/dL (0.2-1.3); Total Protein 6.1 g/dL (6.3-8.2)
[2020-03-01 17:10] LABS: Appearance,Urine Cloudy (Clear); Bacteria,Urine Many /hpf; Bilirubin,Urine Negative (Negative); Blood,Urine Negative (Negative); Color,Urine Yellow; Glucose,Urine (UA) Negative (Negative); Ketones,Urine Negative (Negative); Leukocyte Esterase,Urine Negative (Negative); Mucus,Urine Many /hpf; Nitrite,Urine Negative (Negative); Protein,Urine Trace (Negative); RBC,Urine 8 /hpf (0-5); Specific Gravity,Urine 1.037 (1.001-1.035); Squamous Epithelial Cell,Urine 8 /hpf (0-4); WBC,Urine 6 /hpf (0-5)
--- NOTE | 2020-03-01 17:27 | XR ---
EXAMINATION TYPE: XR chest 2V DATE OF EXAM: 03/01/2020 COMPARISON: 02/24/2020. HISTORY: Follow-up pneumonia. TECHNIQUE: Frontal and lateral views of the chest are obtained. FINDINGS: There is decreased bibasilar opacity without significant residual. No pneumothorax or pleu ral effusion. The cardiac silhouette size is within normal limits. The osseous structures are inta ct. IMPRESSION: Improvement of bibasilar opacities without significant residual.
== END 2020-03-01 18:47 | disposition home or self-care (01) ==
LOC: EC 15:25
DX: O99.891 Other specified diseases and conditions complicating pregnancy (principal); R91.8 Other nonspecific abnormal finding of lung field; O99.332 Smoking (tobacco) complicating pregnancy, second trimester; F17.200 Nicotine dependence, unspecified, uncomplicated; Z3A.18 18 weeks gestation of pregnancy
CPT/HCPCS: 36415; 71046; 80053; 81001; 85025; 87086; 93005; 96360; 96361; 99284

== ENCOUNTER 2020-05-16 13:51 | Emergency (ER) | payer OTHER ==
[2020-05-16 13:56] VITALS: RESP 16; TEMP 98.2
[2020-05-16] MEDS ORDERED: SODIUM CHLORIDE 0.9% 1,000 ML IV STA (14:23)
--- NOTE | 2020-05-16 14:54 | ED ---
General Adult HPI - General Chief complaint: Dizziness Stated complaint: Dizzy Time Seen by Provider: 05/16/20 14:01 Source: patient Mode of arrival: ambulatory Limitations: no limitations - History of Present Illness Initial comments: Patient is a 30-year-old female presenting to the emergency Department with complaints of lightheadedness and dizziness that started a little bit yesterday. Patient is currently 28 weeks , REFRIGERATOR REPAIRMAN is Dr. Burns, . Patient states yesterday she felt "a little off in the morning" and was able to eat a little bit throughout the day and then felt improvement. Patient states last night and into this morning she is feeling like "her sugar is low and feels dehydrated." She states she did have a few episodes of nausea and vomiting today. She states she does not eat a whole lot and has been trying to sip on some water. She denies any chest pain, no shortness of breath no fever or chills. She denies any abdominal pain, no cramping, no vaginal bleeding. She states she got the same way a few months ago and she was dehydrated. Patient states she just recently had a three-hour glucose test which was normal. He denies any sick contacts. She has no further complaints at this time. Upon arrival to the ER, she is slightly tachycardia at 100, rest of vitals are normal. - Related Data Home Medications Medication Instructions Recorded Confirmed Pnv,Calcium 72/Iron/Folic Acid 1 tab PO DAILY 03/01/20 05/16/20 [ Plus Tablet] Acyclovir 400 mg PO Q8H PRN 05/16/20 05/16/20 Allergies Allergy/AdvReac Type Severity Reaction Status Date / Time No Known Allergies Allergy Verified 05/16/20 15:10 Review of Systems ROS Statement: Those systems with pertinent positive or pertinent negative responses have been documented in the HPI. ROS Other: All systems not noted in ROS Statement are negative. Past Medical History Past Medical History: No Reported History Additional Past Medical History / Comment(s): Ob history: First was an elective termination. Second was a vaginal delivery, 8 pounds. A+, abs neg, Rub Imm, RPR NR, Hep B neg. GBS neg. normal 1 hour. History of Any Multi-Drug Resistant Organisms: None Reported Past Surgical History: No Surgical Hx Reported Past Anesthesia/Blood Transfusion Reactions: No Reported Reaction Past Psychological History: No Psychological Hx Reported Smoking Status: Current every day smoker Past Alcohol Use History: None Reported Past Drug Use History: None Reported - Past Family History Mother Family Medical History: No Reported History General Exam - General Exam Comments Initial Comments: GENERAL: Patient is well-developed and well-nourished. Patient is nontoxic and in no acute distress. HEAD: Atraumatic, normocephalic. EYES: Pupils equal round and reactive to light, extraocular movements intact, sclera anicteric, conjunctiva are normal. Eyelids were unremarkable. ENT: TMs normal, nares patent, oropharynx clear without exudates. Moist mucous membr anes. NECK: Normal range of motion, supple without lymphadenopathy or JVD. LUNGS: Unlabored respirations. Breath sounds clear to auscultation bilaterally and equal. No wheezes rales or rhonchi. HEART: Mild tachycardic rate and rhythm without murmurs, rubs or gallops. ABDOMEN: Soft, nontender, normoactive bowel sounds. No guarding, no rebound. No masses appreciated. : Deferred MUSCULOSKELETAL: Normal extremities with adequate strength and normal range of motion, no pitting or edema. No clubbing or cyanosis. NEUROLOGICAL: Patient is alert and oriented x 3. Motor and sensory are also intact. Cranial nerves II through XII grossly intact. Symmetrical smile. Normal speech, normal gait. PSYCH: Normal mood, normal affect. SKIN: Warm, Dry, normal turgor, no rashes or lesions noted. Limitations: no limitations Course Vital Signs 05/16/20 05/16/20 05/16/20 13:53 15:30 16:47 Temperature 98.2 F Pulse Rate 100 89 89 Respiratory 16 16 16 Rate Blood Pressure 116/76 98/61 91/59 O2 Sat by Pulse 99 98 99 Oximetry EKG Findings - EKG Comments: EKG Findings:: Normal sinus rhythm, no signs of acute process, similar to previous EKG and 03/01/2020. The ventricular rate 91, VA interval 158, QT 318. Medical Decision Making - Medical Decision Making Patient is a 30-year-old female, currently 28 weeks , presenting for lightheadedness, mild dizziness that started yesterday. She denies any abdominal pain, no vaginal bleeding. Her REFRIGERATOR REPAIRMAN is Dr. Burns, she is . Her exam is unremarkable. Her vital signs show slightly tachycardia at 100, rest of vitals are normal. heart tones today are normal, in the 130s, she has been feeling regular movement. Labs show a slight leukocytosis 14.8, she has had this in the past, some mild dehydration, no signs of a UTI. She was given fluids and Zofran has been resting completely ER. She reports improvement in her symptoms. I did discuss with patient that her symptoms are most likely related to dehydration. I did recommend increasing fluid intake, did give her a starter pack of Zofran. Patient is stable for discharge at this time. I did discuss with patient that she should go upstairs to the OB unit for monitoring. Patient is in agreement with this plan of care. Return parameters were discussed with the patient she verbalized understanding. She'll follow up with her REFRIGERATOR REPAIRMAN. Case discussed with Dr. Snider. - Lab Data Result diagrams: 05/16/20 14:31 05/16/20 14:31 Lab Results 05/16/20 05/16/20 05/16/20 Range/Units 14:31 14:31 14:31 WBC 14.8 H (3.8-10.6) k/uL RBC 4.26 (3.80-5.40) m/uL Hgb 12.7 (11.4-16.0) gm/dL Hct 38.5 (34.0-46.0) % MCV 90.4 (80.0-100.0) fL MCH 29.8 (25.0-35.0) pg MCHC 32.9 (31.0-37.0) g/dL RDW 13.3 (11.5-15.5) % Plt Count 300 (150-450) k/uL MPV 8.9 Neutrophils % 73 % Lymphocytes % 19 % Monocytes % 5 % Eosinophils % 1 % Basophils % 0 % Neutrophils # 10.9 H (1.3-7.7) k/uL Lymphocytes # 2.8 (1.0-4.8) k/uL Monocytes # 0.8 (0-1.0) k/uL Eosinophils # 0.2 (0-0.7) k/uL Basophils # 0.0 (0-0.2) k/uL Sodium 136 L (137-145) mmol/L Potassium 4.2 (3.5-5.1) mmol/L Chloride 109 H (98-107) mmol/L Carbon Dioxide 20 L (22-30) mmol/L Anion Gap 7 mmol/L BUN 6 L (7-17) mg/dL Creatinine 0.45 L (0.52-1.04) mg/dL Est GFR (CKD-EPI)AfAm >90 (>60 ml/min/1.73 sqM) Est GFR (CKD-EPI)NonAf >90 (>60 ml/min/1.73 sqM) Glucose 82 (74-99) mg/dL Plasma Lactic Acid Shayan (0.7-2.0) mmol/L Calcium 9.4 (8.4-10.2) mg/dL Total Bilirubin 0.3 (0.2-1.3) mg/dL AST 19 (14-36) U/L ALT 13 (4-34) U/L Alkaline Phosphatase 84 (38-126) U/L Total Protein 6.3 (6.3-8.2) g/dL Albumin 3.5 (3.5-5.0) g/dL Urine Color Yellow Urine Appearance Cloudy H (Clear) Urine pH 7.0 (5.0-8.0) Ur Specific [place] 1.008 (1.001-1.035) Urine Protein Negative (Negative) Urine Glucose (UA) Negative (Negative) Urine Ketones Negative (Negative) Urine Blood Negative (Negative) Urine Nitrite Negative (Negative) Urine Bilirubin Negative (Negative) Urine Urobilinogen <2.0 (<2.0) mg/dL Ur Leukocyte Esterase Negative (Negative) Urine RBC 1 (0-5) /hpf Urine WBC 1 (0-5) /hpf Ur Squamous Epith Cells 1 (0-4) /hpf Amorphous Sediment Rare H (None) /hpf Urine Bacteria Moderate H (None) /hpf Urine Mucus Rare H (None) /hpf 05/16/20 Range/Units 14:31 WBC (3.8-10.6) k/uL RBC (3.80-5.40) m/uL Hgb (11.4-16.0) gm/dL Hct (34.0-46.0) % MCV (80.0-100.0) fL MCH (25.0-35.0) pg MCHC (31.0-37.0) g/dL RDW (11.5-15.5) % Plt Count (150-450) k/uL MPV Neutrophils % % Lymphocytes % % Monocytes % % Eosinophils % % Basophils % % Neutrophils # (1.3-7.7) k/uL Lymphocytes # (1.0-4.8) k/uL Monocytes # (0-1.0) k/uL Eosinophils # (0-0.7) k/uL Basophils # (0-0.2) k/uL Sodium (137-145) mmol/L Potassium (3.5-5.1) mmol/L Chloride (98-107) mmol/L Carbon Dioxide (22-30) mmol/L Anion Gap mmol/L BUN (7-17) mg/dL Creatinine (0.52-1.04) mg/dL Est GFR (CKD-EPI)AfAm (>60 ml/min/1.73 sqM) Est GFR (CKD-EPI)NonAf (>60 ml/min/1.73 sqM) Glucose (74-99) mg/dL Plasma Lactic Acid Shayan 1.5 (0.7-2.0) mmol/L Calcium (8.4-10.2) mg/dL Total Bilirubin (0.2-1.3) mg/dL AST (14-36) U/L ALT (4-34) U/L Alkaline Phosphatase (38-126) U/L Total Protein (6.3-8.2) g/dL Albumin (3.5-5.0) g/dL Urine Color Urine Appearance (Clear) Urine pH (5.0-8.0) Ur Specific [place] (1.001-1.035) Urine Protein (Negative) Urine Glucose (UA) (Negative) Urine Ketones (Negative) Urine Blood (Negative) Urine Nitrite (Negative) Urine Bilirubin (Negative) Urine Urobilinogen (<2.0) mg/dL Ur Leukocyte Esterase (Negative) Urine RBC (0-5) /hpf Urine WBC (0-5) /hpf Ur Squamous Epith Cells (0-4) /hpf Amorphous Sediment (None) /hpf Urine Bacteria (None) /hpf Urine Mucus (None) /hpf Disposition Clinical Impression: Dehydration, Lightheadedness Disposition: HOME SELF-CARE Condition: Stable Instructions (If sedation given, give patient instructions): Dehydration (ED) Additional Instructions: Please return to the Emergency Department if symptoms worsen or any other concerns. Recommended going to OB unit for check. Continue to increase fluid intake. Follow up with your REFRIGERATOR REPAIRMAN. May use Zofran as needed for additional nausea. Is patient prescribed a controlled substance at d/c from ED?: No Referrals: Kristen Jacobsen DO [Primary Care Provider] - 1-2 days Cassi Burns DO [Doctor of Osteopathic Medicine] - 1-2 days
[2020-05-16 15:10] LABS: Basophils % (A) 0 %; Eosinophils # (A) 0.2 k/uL (0-0.7); Eosinophils % (A) 1 %; HCT 38.5 % (34.0-46.0); HGB 12.7 gm/dL (11.4-16.0); Lymphocytes # (A) 2.8 k/uL (1.0-4.8); Lymphocytes % (A) 19 %; MCH 29.8 pg (25.0-35.0); MCHC 32.9 g/dL (31.0-37.0); MCV 90.4 fL (80.0-100.0); Mean Platelet Volume 8.9; Monocytes # (A) 0.8 k/uL (0-1.0); Monocytes % (A) 5 %; Neutrophils # (A) 10.9 k/uL (1.3-7.7); Neutrophils % (A) 73 %; Platelet Count 300 k/uL (150-450); RBC 4.26 m/uL (3.80-5.40); RDW 13.3 % (11.5-15.5); WBC 14.8 k/uL (3.8-10.6)
[2020-05-16 15:14] LABS: Amorphous Sediment,Urine Rare /hpf; Appearance,Urine Cloudy (Clear); Bacteria,Urine Moderate /hpf; Bilirubin,Urine Negative (Negative); Blood,Urine Negative (Negative); Color,Urine Yellow; Glucose,Urine (UA) Negative (Negative); Ketones,Urine Negative (Negative); Leukocyte Esterase,Urine Negative (Negative); Mucus,Urine Rare /hpf; Nitrite,Urine Negative (Negative); Protein,Urine Negative (Negative); RBC,Urine 1 /hpf (0-5); Specific Gravity,Urine 1.008 (1.001-1.035); Squamous Epithelial Cell,Urine 1 /hpf (0-4); Urobilinogen,Urine <2.0 mg/dL (<2.0); WBC,Urine 1 /hpf (0-5)
[2020-05-16 15:23] LABS: ALT 13 U/L (4-34); AST 19 U/L (14-36); African American GFR (CKD) >90 (>60 ml/min/1.73 sqM); Albumin 3.5 g/dL (3.5-5.0); Alkaline Phosphatase 84 U/L (38-126); Anion Gap 7 mmol/L; Blood Urea Nitrogen 6 mg/dL (7-17); Calcium 9.4 mg/dL (8.4-10.2); Carbon Dioxide 20 mmol/L (22-30); Chloride 109 mmol/L (98-107); Glucose 82 mg/dL (74-99); Non-African American GFR(CKD) >90 (>60 ml/min/1.73 sqM); Potassium 4.2 mmol/L (3.5-5.1); Sodium 136 mmol/L (137-145); Total Bilirubin 0.3 mg/dL (0.2-1.3); Total Protein 6.3 g/dL (6.3-8.2)
[2020-05-16 15:32] VITALS: PULSE 89
[2020-05-16] MEDS ORDERED: ONDANSETRON 4 MG/2 ML VIAL IVP STA (16:04)
[2020-05-16 16:48] VITALS: BP 91/59
[2020-05-16] MEDS ORDERED: ONDANSETRON 4 MG ODT STARTER PACK 2 TAB BTL PO STA (16:58)
== END 2020-05-16 17:05 | disposition home or self-care (01) ==
LOC: EC 13:51
DX: O99.283 Endocrine, nutritional and metabolic diseases complicating pregnancy, third trimester (principal); E86.0 Dehydration; O26.893 Other specified pregnancy related conditions, third trimester; R00.0 Tachycardia, unspecified; O99.333 Smoking (tobacco) complicating pregnancy, third trimester; F17.200 Nicotine dependence, unspecified, uncomplicated; Z3A.28 28 weeks gestation of pregnancy
CPT/HCPCS: 36415; 93005; 80053; 83605; 85025; 81001; 99284; 96374; 96361; J2405; S0119

== ENCOUNTER 2020-07-11 09:54 | Outpatient (CLI) | payer OTHER ==
[2020-07-11 11:57] VITALS: BP 111/69; PULSE 95; RESP 16; TEMP 97
--- NOTE | 2020-08-05 08:42 | P.MSEPDOC ---
Presenting Problems - Arrival Data Date of Arrival on Unit: 07/11/20 Time of Arrival on Unit: 09:54 Mode of Transport: Ambulatory - Complaint OB-Reason for Admission/Chief Complaint: Possible Onset of Labor Comment: contractions since 0600 every 10 min Medical History - Information : 5 Para: 2 Term: 2 : 0 Abortions: Spontaneous or Elective: 2 Number of Living Children: 2 - Gestational Age Gestational Age by JASMIN (wks/days): 38 Weeks and 2 Days - History Complications: Smoker Review of Systems - Review of Systems Constitutional: No problems Breast: No problems ENT: No problems Cardiovascular: No problems Respiratory: No problems Gastrointestinal: No problems Genitourinary: No problems Musculoskeletal: No problems Neurological: No problems Skin: No problems Vital Signs - Temperature Temperature: 97 F Temperature Source: Temporal Artery Scan - Pulse Right Brachial Pulse Rate: 95 Pulse Assessment Method: Automatic Cuff - Respirations Respiratory Rate: 16 Oxygen Delivery Method: Room Air O2 Sat by Pulse Oximetry: 98 - Blood Pressure Right Arm Sitting Blood Pressure: 111/69 Blood Pressure Mean: 83 Blood Pressure Source: Automatic Cuff Medical Screen Scoring (Pre) - Cervical Exam Dilation: 1-3 cm = 1 Membranes: Intact - Uterine Contractions Frequency: N/A Duration: N/A Intensity: N/A - Maternal Vital Signs Maternal Temperature: N/A Maternal Blood Pressure: N/A Signs of Preeclampsia: N/A Maternal Respirations: N/A - Maternal Trauma Maternal Trauma: N/A - Assessment - Baby A Baseline FHR: 140 Heart Rate - NICHD Category: Category I (Normal) = 0 NST: Reactive Position: N/A Station: N/A - Total Score - Baby A Total Score - Baby A: 1 - Total Score - Baby B Total Score - Baby B: 1 - Total Score - Baby C Total Score - Baby C: 1 - Level of Risk - Baby A Level of Risk - Baby A: Low (0-5) - Level of Risk - Baby B Level of Risk - Baby B: Low (0-5) - Level of Risk - Baby C Level of Risk - Baby C: Low (0-5) Physician Notification (Pre) - Physician Notified Physician Notified Date: 07/11/20 Physician Notified Time: 11:39 New Order Received: Yes (d/c) Disposition - Disposition OB Disposition: Triage, Discharge to home, Written follow up instructions reviewed Discharge Date: 07/11/20 Discharge Time: 11:42 I agree with the RN Medical Screening Exam: Yes Case reviewed; plan agreed upon as documented in EMR&OBIX.: Yes Diagnosis: FALSE LABOR AT OR AFTER 37 COMPLETED WEEKS OF GESTATION
== END 2020-07-11 11:42 | disposition home or self-care (01) ==
LOC: FBPOP 09:54
PROVIDERS: ATTEND Obstetrics & Gynecology
DX: O47.1 False labor at or after 37 completed weeks of gestation (principal); Z3A.38 38 weeks gestation of pregnancy
CPT/HCPCS: 59025; G0463; 99213

== ENCOUNTER 2020-07-23 11:19 | Outpatient (CLI) | payer OTHER ==
[2020-07-23 12:08] VITALS: BP 117/71; PULSE 87; RESP 16; TEMP 97.9
--- NOTE | 2020-07-27 16:37 | P.MSEPDOC ---
Presenting Problems - Arrival Data Date of Arrival on Unit: 07/23/20 Time of Arrival on Unit: 11:19 Mode of Transport: Ambulatory - Complaint OB-Reason for Admission/Chief Complaint: Decreased Movement Comment: only feeling a couple movments per day Medical History - Information : 5 Para: 2 Term: 2 : 0 Abortions: Spontaneous or Elective: 2 Number of Living Children: 2 - Gestational Age Gestational Age by JASMIN (wks/days): 40 Weeks and 0 Days Review of Systems - Review of Systems Constitutional: No problems Breast: No problems ENT: No problems Cardiovascular: No problems Respiratory: No problems Gastrointestinal: No problems Genitourinary: No problems Musculoskeletal: No problems Neurological: No problems Skin: No problems Vital Signs - Temperature Temperature: 97.9 F Temperature Source: Temporal Artery Scan - Pulse Right Sitting Pulse Rate: 87 Pulse Assessment Method: Automatic Cuff - Respirations Respiratory Rate: 16 Oxygen Delivery Method: Room Air O2 Sat by Pulse Oximetry: 97 - Blood Pressure Right Arm Sitting Blood Pressure: 117/71 Blood Pressure Mean: 86 Blood Pressure Source: Automatic Cuff Medical Screen Scoring (Pre) - Cervical Exam Dilation: Exam Deferred Effacement: Exam Deferred Membranes: Intact - Uterine Contractions Frequency: > 5 minutes apart = 1 Duration: > 40 seconds = 2 Intensity: N/A - Maternal Vital Signs Maternal Temperature: N/A Maternal Blood Pressure: N/A Signs of Preeclampsia: N/A Maternal Respirations: N/A - Maternal Trauma Maternal Trauma: N/A - Assessment - Baby A Baseline FHR: 130 Heart Rate - NICHD Category: Category I (Normal) = 0 NST: Reactive Station: N/A - Total Score - Baby A Total Score - Baby A: 3 - Total Score - Baby B Total Score - Baby B: 3 - Total Score - Baby C Total Score - Baby C: 3 - Level of Risk - Baby A Level of Risk - Baby A: Low (0-5) - Level of Risk - Baby B Level of Risk - Baby B: Low (0-5) - Level of Risk - Baby C Level of Risk - Baby C: Low (0-5) Physician Notification (Pre) - Physician Notified Physician Notified Date: 07/23/20 Physician Notified Time: 11:49 New Order Received: Yes (d/c with instruction) Disposition - Disposition OB Disposition: Triage, Discharge to home, Written follow up instructions reviewed Discharge Date: 07/23/20 Discharge Time: 11:57 I agree with the RN Medical Screening Exam: Yes Case reviewed; plan agreed upon as documented in EMR&OBIX.: Yes Diagnosis: DECREASED MOVEMENTS, THIRD TRIMESTER, FETUS 1
== END 2020-07-23 12:05 | disposition home or self-care (01) ==
LOC: FBPOP 11:19
PROVIDERS: ATTEND Obstetrics & Gynecology
DX: O36.8131 Decreased fetal movements, third trimester, fetus 1 (principal); Z3A.40 40 weeks gestation of pregnancy
CPT/HCPCS: 59025; G0463; 99213

== ENCOUNTER 2020-07-26 06:00 | Inpatient (IN) | payer OTHER ==
[2020-07-26] MEDS ORDERED: TERBUTALINE 1 MG/ML VIAL SQ PRN (06:20)
[2020-07-26] MEDS ORDERED: METHYLERGONOVINE 0.2 MG/ML 1 ML AMP IM PRN (06:20)
[2020-07-26] MEDS ORDERED: OXYTOCIN 10 UNIT/ML 1 ML VIAL IM PRN (06:20)
[2020-07-26] MEDS ORDERED: LIDOCAINE 0.5% (PF) 5 MG/ML (50 ML SDV) SQ PRN (06:20)
[2020-07-26] MEDS ORDERED: CARBOPROST TROMETHAMINE 250 MCG/ML 1 ML AMP IM PRN (06:20)
[2020-07-26] MEDS ORDERED: OXYTOCIN 30 UNITS/500 ML NS 30 UNIT in SALINE 1 500ML.BAG IV SCH (06:30)
[2020-07-26] MEDS: LACTATED RINGERS 1,000 ML IV SCH ×3 (06:58→11:57)
[2020-07-26 07:02] LABS: Basophils # (A) 0.1 k/uL (0-0.2); Basophils % (A) 0 %; Eosinophils # (A) 0.2 k/uL (0-0.7); Eosinophils % (A) 2 %; HCT 36.4 % (34.0-46.0); HGB 12.5 gm/dL (11.4-16.0); Lymphocytes # (A) 3.4 k/uL (1.0-4.8); Lymphocytes % (A) 24 %; MCH 31.4 pg (25.0-35.0); MCHC 34.2 g/dL (31.0-37.0); MCV 91.6 fL (80.0-100.0); Mean Platelet Volume 9.5; Monocytes # (A) 0.7 k/uL (0-1.0); Monocytes % (A) 5 %; Neutrophils # (A) 9.5 k/uL (1.3-7.7); Neutrophils % (A) 68 %; Platelet Count 242 k/uL (150-450); RBC 3.97 m/uL (3.80-5.40); RDW 13.4 % (11.5-15.5)
[2020-07-26] MEDS ORDERED: ROPIVACAINE 5MG/ML 20ML VIAL ONE (09:44)
[2020-07-26] MEDS ORDERED: SODIUM CHLORIDE 0.9% 100 ML BAG ONE (09:44)
[2020-07-26] MEDS ORDERED: fentaNYL (PF) 50 MCG/ML 5 ML AMP ONE (09:44)
[2020-07-26] MEDS ORDERED: diphenhydrAMINE 50 MG CAP PO PRN (12:38)
[2020-07-26] MEDS ORDERED: diphenhydrAMINE 25 MG CAP PO PRN (12:38)
[2020-07-26] MEDS ORDERED: HYDROCORTISONE 2.5% RECTAL CREAM 30 GM TUBE RECTAL PRN (12:38)
[2020-07-26] MEDS ORDERED: ZOLPIDEM 5 MG TAB PO PRN (12:38)
[2020-07-26] MEDS ORDERED: diphenhydrAMINE 50 MG/ML 1 ML VIAL IVP PRN ×2 (12:38)
[2020-07-26] MEDS ORDERED: LANOLIN CREAM 5 GM TUBE TOPICAL PRN (12:38)
[2020-07-26] MEDS ORDERED: SIMETHICONE 80 MG CHEWABLE PO PRN (12:38)
[2020-07-26] MEDS ORDERED: BENZOCAINE/MENTHOL SPRAY 1 GM/SPRAY AEROSOL TOPICAL PRN (12:38)
[2020-07-26] MEDS: IBUPROFEN 600 MG TAB PO SCH ×3 (14:08→22:55)
[2020-07-26 18:36] VITALS: RESP 16
[2020-07-26] MEDS: ACETAMINOPHEN TAB 325 MG TAB PO PRN (20:01)
[2020-07-26] MEDS: SENNOSIDES-DOCUSATE SODIUM 1 EACH TAB PO SCH (20:02)
[2020-07-27] MEDS: IBUPROFEN 600 MG TAB PO SCH ×2 (00:13→07:18)
[2020-07-27] MEDS: ACETAMINOPHEN TAB 325 MG TAB PO PRN (03:42)
[2020-07-27 08:01] VITALS: BP 113/64; PULSE 76; TEMP 97.9
--- NOTE | 2020-07-27 08:04 | P.HPOB ---
History of Present Illness H&P Date: 07/26/20 Chief Complaint: induction of labor 30 year old G 5 P2 presents at 40 weeks and 3 days for induction of labor. Her cervix was 3 cm dilated, 80% effaced, and -2 station. She is patti irregularly. heart tones 130 with moderate variability and reactive. Review of Systems All systems: negative Constitutional: Denies chills, Denies fever Eyes: denies blurred vision, denies pain Ears, nose, mouth and throat: Denies headache, Denies sore throat Cardiovascular: Denies chest pain, Denies shortness of breath Respiratory: Denies cough Gastrointestinal: Denies abdominal pain, Denies diarrhea, Denies nausea, Denies vomiting Genitourinary: Denies dysuria, Denies hematuria Musculoskeletal: Denies myalgias Integumentary: Denies pruritus, Denies rash Neurological: Denies numbness, Denies weakness Psychiatric: Denies anxiety, Denies depression Endocrine: Denies fatigue, Denies weight change Past Medical History Past Medical History: No Reported History Additional Past Medical History / Comment(s): Ob history: First was an elective termination. She then went on to have 2 vaginal deliveries. A+, abs neg, Rub Imm, RPR NR, Hep B neg. GBS neg. normal 1 hour. History of Any Multi-Drug Resistant Organisms: None Reported Past Surgical History: No Surgical Hx Reported Past Anesthesia/Blood Transfusion Reactions: No Reported Reaction Past Psychological History: No Psychological Hx Reported Smoking Status: Current every day smoker Past Alcohol Use History: None Reported Additional Past Alcohol Use History / Comment(s): 10-20 ciggarettes per day Past Drug Use History: None Reported - Past Family History Mother Family Medical History: No Reported History Medications and Allergies Home Medications Medication Instructions Recorded Confirmed Type Pnv,Calcium 72/Iron/Folic Acid 1 tab PO DAILY 03/01/20 07/26/20 History [ Plus Tablet] Acyclovir 400 mg PO Q8H PRN 05/16/20 07/26/20 History Allergies Allergy/AdvReac Type Severity Reaction Status Date / Time No Known Allergies Allergy Verified 07/26/20 06:13 Exam Osteopathic Statement: *. No significant issues noted on an osteopathic structural exam other than those noted in the History and Physical/Consult. Vital Signs Temp Pulse Pulse Resp BP 07/27/20 07:59 97.9 F 76 16 113/64 07/27/20 00:00 98.1 F 78 16 121/62 07/26/20 20:00 97.8 F 70 16 98/55 07/26/20 16:00 98.4 F 104 H 16 99/58 07/26/20 13:34 98.1 F 78 18 110/65 07/26/20 13:04 82 16 103/58 07/26/20 12:34 86 18 118/59 07/26/20 12:19 88 18 121/65 07/26/20 12:04 82 18 116/63 07/26/20 11:49 81 16 113/58 07/26/20 11:34 97.1 F L 91 16 128/59 Intake and Output 07/26/20 07/27/20 07/27/20 22:59 06:59 14:59 Other: # Voids 1 1 1 Heart: Regular rate and rhythm Lungs: Clear to auscultation bilaterally Abdomen: Soft, nontender Extremities: Negative Homans sign Results Result Diagrams: 07/26/20 06:27 Assessment and Plan (1) Encounter for elective induction of labor Current Visit: Yes Status: Acute Code(s): Z34.90 - ENCNTR FOR SUPRVSN OF NORMAL , UNSP, UNSP TRIMESTER SNOMED Code(s): 481575304 Plan: 1. Induction of labor with amniotomy and Pitocin 2. Anticipate normal vaginal delivery
--- NOTE | 2020-07-27 08:05 | P.PROBDLV ---
Vaginal Delivery Note - . Vaginal Delivery Note: 30 year old G 5 P2 presents at 40 weeks and 3 days for induction of labor. Her cervix was 3 cm dilated, 80% effaced, and -2 station. She is patti irregularly. heart tones 130 with moderate variability and reactive. Pitocin was started. Amniotomy performed at 6:50 AM and clear fluid noted. She got an epidural and she was uncomfortable. Her cervix was completely dilated at 11:14 AM. She pushed, and delivered a viable female infant over intact perineum under epidural anesthesia at 11:20 AM. Head delivered OA, anterior shoulder delivered gentle downward guidance followed by posterior shoulder and rest of body. Nose and mouth bulb suctioned, cord clamped and cut, infant placed mother's abdomen. Apgars 8, 9, weight 7 lbs. 5 oz. Placenta delivered spontaneously, intact with three-vessel cord at 11:22 AM. Vagina, cervix, and perineum were inspected. No lacerations noted. Estimated blood loss 150 mL. Mother and baby in stable condition.
[2020-07-27] MEDS: SENNOSIDES-DOCUSATE SODIUM 1 EACH TAB PO SCH (08:06)
--- NOTE | 2020-07-27 08:06 | P.DS ---
Providers Date of admission: 07/26/20 06:00 Expected date of discharge: 07/27/20 Attending physician: Cassi Burns Primary care physician: Stated None - Discharge Diagnosis(es) (1) Encounter for elective induction of labor Current Visit: Yes Status: Resolved (2) Normal vaginal delivery Current Visit: No Status: Acute Hospital Course: Patient presented for induction of labor. She underwent a normal vaginal delivery. course was uncomplicated. She'll be discharged home day #1 in stable condition to follow-up with me in 6 weeks. Plan - Discharge Summary New Discharge Prescriptions: New Ibuprofen [Motrin] 600 mg PO Q6HR PRN #30 tab PRN Reason: Mild Pain Or Fever >= 100.5 No Action Pnv,Calcium 72/Iron/Folic Acid [ Plus Tablet] 1 tab PO DAILY Acyclovir 400 mg PO Q8H PRN PRN Reason: OUTBREAK Discharge Medication List Pnv,Calcium 72/Iron/Folic Acid [ Plus Tablet] 1 tab PO DAILY 03/01/20 [History] Acyclovir 400 mg PO Q8H PRN 05/16/20 [History] Ibuprofen [Motrin] 600 mg PO Q6HR PRN #30 tab 07/27/20 [Rx] Follow up Appointment(s)/Referral(s): Cassi Burns DO [Doctor of Osteopathic Medicine] - 6 Weeks Discharge Disposition: HOME SELF-CARE
[2020-07-27 09:36] LABS: Basophils # (A) 0.1 k/uL (0-0.2); Basophils % (A) 0 %; Eosinophils # (A) 0.2 k/uL (0-0.7); Eosinophils % (A) 1 %; HCT 40.3 % (34.0-46.0); HGB 13.6 gm/dL (11.4-16.0); Lymphocytes # (A) 2.8 k/uL (1.0-4.8); Lymphocytes % (A) 22 %; MCH 31.3 pg (25.0-35.0); MCHC 33.7 g/dL (31.0-37.0); MCV 92.8 fL (80.0-100.0); Mean Platelet Volume 10.2; Monocytes # (A) 0.7 k/uL (0-1.0); Monocytes % (A) 6 %; Neutrophils # (A) 8.5 k/uL (1.3-7.7); Neutrophils % (A) 69 %; Platelet Count 194 k/uL (150-450); RBC 4.34 m/uL (3.80-5.40); WBC 12.4 k/uL (3.8-10.6)
== END 2020-07-27 12:30 | disposition home or self-care (01) | DRG 807 ==
LOC: 4FBP 06:00
PROVIDERS: ADMIT Obstetrics & Gynecology; ATTEND Obstetrics & Gynecology
PROC: 10E0XZZ Delivery of Products of Conception, External Approach (ICD-10-PCS; principal; 2020-07-26)
PROC: 00HU33Z Insertion of Infusion Device into Spinal Canal, Percutaneous Approach (ICD-10-PCS; principal; 2020-07-26)
PROC: 3E033VJ Introduction of Other Hormone into Peripheral Vein, Percutaneous Approach (ICD-10-PCS; principal; 2020-07-26)
PROC: 10907ZC Drainage of Amniotic Fluid, Therapeutic from Products of Conception, Via Natural or Artificial Opening (ICD-10-PCS; principal; 2020-07-26)
PROC: 3E0R3NZ Introduction of Analgesics, Hypnotics, Sedatives into Spinal Canal, Percutaneous Approach (ICD-10-PCS; principal; 2020-07-26)
DX: O99.334 Smoking (tobacco) complicating childbirth (principal); Z37.0 Single live birth; F17.200 Nicotine dependence, unspecified, uncomplicated; Z3A.40 40 weeks gestation of pregnancy
CPT/HCPCS: 85025; 86850; 86900; 86901

== ENCOUNTER → 2021-02-02 | Outpatient (CLI) | payer OTHER | END | disposition home or self-care (01) | LOC: LABWHC1 14:25 | PROVIDERS: ATTEND Pediatrics | DX: Z20.822 Contact with and (suspected) exposure to COVID-19 (principal) | CPT/HCPCS: U0003; C9803; U0005 ==

== ENCOUNTER → 2021-07-17 | Outpatient (CLI) | payer OTHER ==
--- NOTE | 2021-07-17 15:10 | US ---
EXAMINATION TYPE: Ultrasound OB <= 14 week fetus DATE OF EXAM: 07/17/2021 10:59 AM COMPARISON: NONE CLINICAL HISTORY: 31-year-old female Z36.89 Confirm dates. EXAM PERFORMED: Transabdominal (TA) FINDINGS: EXAM MEASUREMENTS: GESTATIONAL AGE / DATING Physician Established: Not yet established Dates by LMP: LMP unknown Dates by First Scan: No previous, this is first scan Dates by Current Scan for: (13 weeks/5 days) EDC: 01/17/2022 MATERNAL ANATOMY Uterus: 14.4 x 6.7 x 10.1cm Right Ovary: 3.0 x 2.3 x 1.9cm Left Ovary: 2.4 x 1.4 x 2.3cm Post CDS / Adnexa: wnl Presence of free fluid: no Presence of corpus luteal cyst: right ovary - 2.3 x 1.6 x 1.9cm Presence of subchorionic bleed: 3.6 x 1.0 x 2.6cm - anterior to gestational sac along the left uterin e fundus GESTATION / SURVEY CRL: 7.6cm (13 weeks/5 days) Yolk Sac (normal less than 6mm): not seen Heart Rate: 152 bpm Rhythm: Normal IUP: Viable IUP Nuchal Translucency 10-14wks (normal less than 3mm): 2.0mm IMPRESSION: 1. Single live intrauterine with gestational age of 13 weeks 5 days by CRL. 2. [id number] sized 3.6 cm perigestational bleed along the left anterior uterine fundus. 3. Complete survey recommended at 18-20 weeks.
== END | disposition home or self-care (01) ==
LOC: RADUSWWP 10:21
PROVIDERS: ATTEND Obstetrics & Gynecology
DX: Z36.89 Encounter for other specified antenatal screening (principal)
CPT/HCPCS: 76801; 76813

== ENCOUNTER 2021-11-29 11:53 | Outpatient (CLI) | payer OTHER ==
[2021-11-29 13:21] VITALS: BP 112/63; PULSE 97; RESP 16; TEMP 98
--- NOTE | 2021-11-29 20:52 | P.MSEPDOC ---
Presenting Problems - Arrival Data Date of Arrival on Unit: 11/29/21 Time of Arrival on Unit: 11:50 Mode of Transport: Ambulatory - Complaint OB-Reason for Admission/Chief Complaint: Possible Onset of Labor Comment: Pt states pressure, no contractions Medical History - Information : 6 Para: 3 Term: 3 : 0 Abortions: Spontaneous or Elective: 2 Number of Living Children: 3 - Gestational Age Gestational Age by JASMIN (wks/days): 33 Weeks and 0 Days Review of Systems - Review of Systems Constitutional: No problems Breast: No problems ENT: No problems Cardiovascular: No problems Respiratory: No problems Gastrointestinal: No problems Genitourinary: No problems Musculoskeletal: No problems Neurological: No problems Skin: No problems Vital Signs - Temperature Temperature: 98.0 F Temperature Source: Oral - Pulse Right Pulse Rate: 97 Pulse Assessment Method: Pulse Oximetry - Respirations Respiratory Rate: 16 Oxygen Delivery Method: Room Air O2 Sat by Pulse Oximetry: 100 - Blood Pressure Right Arm Blood Pressure: 112/63 Blood Pressure Mean: 79 Blood Pressure Source: Automatic Cuff Medical Screen Scoring - Cervical Exam Membranes: Intact - Assessment - Baby A Baseline FHR: 120 Heart Rate - NICHD Category: Category I (Normal) NST: Reactive Physician Notification - Physician Notified Physician Notified Date: 11/29/21 Physician Notified Time: 12:55 Physician: Cassi Burns Order Received: Yes (discharge) Maternal Triage Index - Maternal Triage Index Presenting for scheduled procedure w/no complaint: No - Stat/Priority 1 Stat Priority 1: No - Urgent/Priority 2 Urgent Priority 2: No - Prompt/Priority 3 Prompt Priority 3: No - Non-Urgent/Priority 4 Non-Urgent Priority 4: Yes Criteria Met for Priority 4: Pt verbalized understanding of need for belly band, criteris met Disposition - Disposition OB Disposition: Discharge to home Discharge Date: 11/29/21 Discharge Time: 13:04 I agree with the RN Medical Screening Exam: Yes Case reviewed; plan agreed upon as documented in EMR&OBIX.: Yes Diagnosis: PELVIC AND PERINEAL PAIN
== END 2021-11-29 12:05 | disposition home or self-care (01) ==
LOC: FBPOP 11:53
PROVIDERS: ATTEND Obstetrics & Gynecology
DX: O26.893 Other specified pregnancy related conditions, third trimester (principal); R10.2 Pelvic and perineal pain; Z3A.33 33 weeks gestation of pregnancy
CPT/HCPCS: 59025; G0463; 99213

== ENCOUNTER 2021-12-31 13:41 | Outpatient (CLI) | payer OTHER ==
[2021-12-31 14:06] VITALS: BP 109/72; PULSE 110; RESP 18; TEMP 98.1
--- NOTE | 2022-01-04 07:38 | P.MSEPDOC ---
Presenting Problems - Arrival Data Date of Arrival on Unit: 12/31/21 Time of Arrival on Unit: 13:50 Mode of Transport: Ambulatory - Complaint OB-Reason for Admission/Chief Complaint: Rule Out SROM Comment: pt here complaints of thinking water broke around 1250- was throwing up and. lost fluid- had pants on and it was all down her pants. Medical History - Information : 4 Para: 3 Term: 3 : 0 Abortions: Spontaneous or Elective: 0 Number of Living Children: 3 - Gestational Age Gestational Age by JASMIN (wks/days): 37 Weeks and 4 Days - History Complications: Smoker Sexually Transmitted Diseases: HSV Review of Systems - Review of Systems Constitutional: No problems Breast: No problems ENT: No problems Cardiovascular: No problems Respiratory: No problems Gastrointestinal: No problems Genitourinary: No problems Musculoskeletal: No problems Neurological: No problems Skin: No problems Vital Signs - Temperature Temperature: 98.1 F Temperature Source: Oral - Pulse Pulse Oximetery Pulse Rate: 110 Pulse Assessment Method: Automatic Cuff - Respirations Respiratory Rate: 18 Oxygen Delivery Method: Room Air - Blood Pressure Right Arm Sitting Blood Pressure: 109/72 Blood Pressure Mean: 84 Blood Pressure Source: Automatic Cuff Medical Screen Scoring - Cervical Exam Dilation (cm): 2 Membranes: Intact - Uterine Contractions Frequency From (mins): 6 Frequency To (mins): 8 Duration From (seconds): 40 Duration To (seconds): 80 Intensity: Mild Resting: Soft to palpation - Assessment - Baby A Baseline FHR: 130 Heart Rate - NICHD Category: Category I (Normal) NST: Reactive Physician Notification - Physician Notified Physician Notified Date: 12/31/21 Physician Notified Time: 14:37 Physician: Dr Burns Maternal Triage Index - Maternal Triage Index Presenting for scheduled procedure w/no complaint: No - Stat/Priority 1 Stat Priority 1: No - Urgent/Priority 2 Urgent Priority 2: No - Prompt/Priority 3 Prompt Priority 3: No - Non-Urgent/Priority 4 Non-Urgent Priority 4: Yes Criteria Met for Priority 4: pt 37 4/7 weeks gestation- questionable ROM Disposition - Disposition OB Disposition: Discharge to home Discharge Date: 12/31/21 Discharge Time: 14:45 I agree with the RN Medical Screening Exam: Yes Case reviewed; plan agreed upon as documented in EMR&OBIX.: Yes Diagnosis: FALSE LABOR AT OR AFTER 37 COMPLETED WEEKS OF GESTATION
== END 2021-12-31 14:45 | disposition home or self-care (01) ==
LOC: FBPOP 13:41
PROVIDERS: ATTEND Obstetrics & Gynecology
DX: O47.1 False labor at or after 37 completed weeks of gestation (principal); Z3A.37 37 weeks gestation of pregnancy
CPT/HCPCS: 59025; G0463; 99213

== ENCOUNTER 2022-01-18 10:07 | Inpatient (IN) | payer OTHER ==
[2022-01-18] MEDS ORDERED: CARBOPROST TROMETHAMINE 250 MCG/ML 1 ML AMP IM PRN (10:44)
[2022-01-18] MEDS ORDERED: OXYTOCIN 10 UNIT/ML 1 ML VIAL IM PRN (10:44)
[2022-01-18] MEDS ORDERED: TERBUTALINE 1 MG/ML VIAL SQ PRN (10:44)
[2022-01-18] MEDS ORDERED: LIDOCAINE 0.5% (PF) 5 MG/ML (50 ML SDV) SQ PRN (10:44)
[2022-01-18] MEDS ORDERED: METHYLERGONOVINE 0.2 MG/ML 1 ML AMP IM PRN (10:44)
[2022-01-18] MEDS ORDERED: LACTATED RINGERS 1,000 ML IV SCH (10:45)
[2022-01-18 11:09] LABS: Basophils # (A) 0.1 k/uL (0-0.2); Basophils % (A) 1 %; Eosinophils # (A) 0.1 k/uL (0-0.7); Eosinophils % (A) 1 %; HCT 37.5 % (34.0-46.0); HGB 12.3 gm/dL (11.4-16.0); Lymphocytes # (A) 3.7 k/uL (1.0-4.8); Lymphocytes % (A) 22 %; MCH 30.1 pg (25.0-35.0); MCHC 32.8 g/dL (31.0-37.0); MCV 91.6 fL (80.0-100.0); Mean Platelet Volume 10.1; Monocytes # (A) 0.9 k/uL (0-1.0); Monocytes % (A) 5 %; Neutrophils # (A) 11.4 k/uL (1.3-7.7); Neutrophils % (A) 70 %; Platelet Count 298 k/uL (150-450); RDW 13.2 % (11.5-15.5); WBC 16.3 k/uL (3.8-10.6)
[2022-01-18] MEDS ORDERED: diphenhydrAMINE 50 MG CAP PO PRN (11:26)
[2022-01-18] MEDS ORDERED: SIMETHICONE 80 MG CHEWABLE PO PRN (11:26)
[2022-01-18] MEDS ORDERED: ZOLPIDEM 5 MG TAB PO PRN (11:26)
[2022-01-18] MEDS ORDERED: diphenhydrAMINE 25 MG CAP PO PRN (11:26)
[2022-01-18] MEDS ORDERED: BENZOCAINE/MENTHOL SPRAY 1 GM/SPRAY AEROSOL TOPICAL PRN (11:26)
[2022-01-18] MEDS ORDERED: OXYTOCIN 30 UNITS/500 ML NS 30 UNIT in SALINE 1 500ML.BAG IV SCH (11:30)
[2022-01-18] MEDS: IBUPROFEN 600 MG TAB PO PRN ×2 (11:38→20:16)
[2022-01-18] MEDS: ACETAMINOPHEN TAB 325 MG TAB PO PRN ×2 (16:31→23:06)
--- NOTE | 2022-01-18 17:08 | P.HPOB ---
History of Present Illness H&P Date: 01/18/22 Chief Complaint: Normal labor 32-year-old presents at 40 weeks and 1 day in active labor. Her cervix was 6 cm dilated, 90% effaced, and -2 station. She is patti irregularly. Her water spontaneously ruptured at 9:22 AM and clear fluid noted. heart tones 135 with moderate variability and reactive. Review of Systems All systems: negative Constitutional: Denies chills, Denies fever Eyes: denies blurred vision, denies pain Ears, nose, mouth and throat: Denies headache, Denies sore throat Cardiovascular: Denies chest pain, Denies shortness of breath Respiratory: Denies cough Gastrointestinal: Denies abdominal pain, Denies diarrhea, Denies nausea, Denies vomiting Genitourinary: Denies dysuria, Denies hematuria Musculoskeletal: Denies myalgias Integumentary: Denies pruritus, Denies rash Neurological: Denies numbness, Denies weakness Psychiatric: Denies anxiety, Denies depression Endocrine: Denies fatigue, Denies weight change Past Medical History Past Medical History: No Reported History Additional Past Medical History / Comment(s): Ob history: First was an elective termination. She then went on to have 3 vaginal deliveries and 1 miscarriage. A+, abs neg, Rub Imm, RPR NR, Hep B neg. GBS neg. normal 1 hour. History of Any Multi-Drug Resistant Organisms: None Reported Past Surgical History: No Surgical Hx Reported Past Anesthesia/Blood Transfusion Reactions: No Reported Reaction Past Psychological History: No Psychological Hx Reported Smoking Status: Current every day smoker Past Alcohol Use History: None Reported Additional Past Alcohol Use History / Comment(s): 10-20 ciggarettes per day Past Drug Use History: None Reported - Past Family History Mother Family Medical History: No Reported History Medications and Allergies Home Medications Medication Instructions Recorded Confirmed Type Vit No.180/Iron/Folic 1 tab PO DAILY 03/01/20 01/18/22 History [ Plus Tablet] RX: Acyclovir 400 mg PO Q8H PRN 05/16/20 01/18/22 History Allergies Allergy/AdvReac Type Severity Reaction Status Date / Time No Known Allergies Allergy Verified 01/18/22 10:26 Exam Osteopathic Statement: *. No significant issues noted on an osteopathic structural exam other than those noted in the History and Physical/Consult. Vital Signs Temp Pulse Resp BP 01/18/22 16:00 98.0 F 70 14 112/66 01/18/22 13:39 97.7 F 77 20 118/79 01/18/22 13:15 97.8 F 77 16 115/72 01/18/22 12:45 69 16 118/66 01/18/22 12:15 71 16 135/62 01/18/22 12:00 74 16 127/73 01/18/22 11:45 82 16 118/70 01/18/22 11:30 86 16 111/54 01/18/22 11:15 97.4 F L 76 16 111/55 01/18/22 10:40 97.7 F 77 16 118/79 Intake and Output 01/18/22 01/18/22 01/18/22 06:59 14:59 22:59 Intake Total 600 Output Total 245 Balance 355 Intake: IV 600 Output: Output, Quantitative 245 Blood Loss Other: # Voids 1 1 Weight 70.307 kg Heart: Regular rate and rhythm Lungs: Clear to auscultation bilaterally Abdomen: Soft, nontender Extremities: Negative Homans sign Results Result Diagrams: 01/18/22 10:40 Abnormal Lab Results - Last 24 Hours (Table) 01/18/22 Range/Units 10:40 WBC 16.3 H (3.8-10.6) k/uL Neutrophils # 11.4 H (1.3-7.7) k/uL Assessment and Plan (1) Normal labor Current Visit: No Status: Resolved Code(s): O80 - ENCOUNTER FOR FULL-TERM UNCOMPLICATED DELIVERY; Z37.9 - OUTCOME OF DELIVERY, UNSPECIFIED SNOMED Code(s): 57429566 (2) Spontaneous rupture of membranes Current Visit: No Status: Resolved Code(s): JRE0742 - SNOMED Code(s): 1 90231276 Plan: 1. Expectant management and anticipate normal vaginal delivery.
--- NOTE | 2022-01-18 17:10 | P.PROBDLV ---
Vaginal Delivery Note - . Vaginal Delivery Note: 32-year-old presents at 40 weeks and 1 day in active labor. Her cervix was 6 cm dilated, 90% effaced, and -2 station. She is patti irregularly. Her water spontaneously ruptured at 9:22 AM and clear fluid noted. heart tones 135 with moderate variability and reactive. She quickly progressed to complete, pushed and delivered a viable male infant over intact perineum at 11:05 AM. Head delivered OA, anterior shoulder delivered gentle downward donte nce followed by posterior shoulder and rest of body. Nose and mouth bulb suctioned, cord clamped and cut, infant placed mother's abdomen. Apgars 8, 9, weight 7 lbs. 10 oz. Placenta delivered spontaneously, intact with three-vessel cord at 11:06 AM. Vagina, cervix, perineum inspected. No lacerations noted. Estimated blood loss 100 mL. Mother and baby in stable condition.
--- NOTE | 2022-01-18 17:11 | P.MSEPDOC ---
Presenting Problems - Arrival Data Date of Arrival on Unit: 01/18/22 Time of Arrival on Unit: 10:40 Mode of Transport: Ambulatory - Complaint OB-Reason for Admission/Chief Complaint: Possible Onset of Labor, Rule Out SROM Comment: pt presents to triage with SROM at 0930 this am with clear fluid and contractions regularly with pressure to push with contractions Medical History - Information : 6 Para: 3 Term: 3 : 0 Abortions: Spontaneous or Elective: 2 Number of Living Children: 3 - Gestational Age Gestational Age by JASMIN (wks/days): 40 Weeks and 1 Days - History Comment: pt on acyclovir for preventative treatment, nothing active at this time Review of Systems - Review of Systems Constitutional: No problems Breast: No problems ENT: No problems Cardiovascular: No problems Respiratory: No problems Gastrointestinal: No problems Genitourinary: No problems Musculoskeletal: No problems Neurological: No problems Skin: No problems Vital Signs - Temperature Temperature: 98.0 F Temperature Source: Oral - Pulse Right Sitting Pulse Rate: 70 Pulse Assessment Method: Automatic Cuff - Respirations Respiratory Rate: 14 Oxygen Delivery Method: Room Air - Blood Pressure Right Arm Blood Pressure: 112/66 Blood Pressure Mean: 81 Blood Pressure Source: Automatic Cuff Medical Screen Scoring - Cervical Exam Dilation (cm): 4.5 Effacement (%): 90 Station: -2 Membranes: Ruptured - Uterine Contractions Frequency From (mins): 1 Frequency To (mins): 2 Duration From (seconds): 40 Duration To (seconds): 80 Intensity: Strong Resting: Soft to palpation - Assessment - Baby A Baseline FHR: 130 Heart Rate - NICHD Category: Category I (Normal) NST: Reactive Physician Notification - Physician Notified Physician Notified Date: 01/18/22 Physician Notified Time: 10:40 Physician: Cassi Burns - Notification Comment Comment: pt admitted for labor Maternal Triage Index - Maternal Triage Index Presenting for scheduled procedure w/no complaint: No - Stat/Priority 1 Stat Priority 1: No - Urgent/Priority 2 Urgent Priority 2: Yes Provider Notified: Cassi Burns Provider Notified Time: 10:40 Criteria Met for Priority 2: pt had SROM at 0930 this am, dilated 5/90/-2, GA 40 17 Disposition - Disposition OB Disposition: Admit I agree with the RN Medical Screening Exam: Yes Case reviewed; plan agreed upon as documented in EMR&OBIX.: Yes Diagnosis: ENCOUNTER FOR FULL-TERM UNCOMPLICATED DELIVERY
[2022-01-18] MEDS: SENNOSIDES-DOCUSATE SODIUM 1 EACH TAB PO SCH (20:17)
[2022-01-19] MEDS: IBUPROFEN 600 MG TAB PO PRN ×2 (02:12→08:57)
[2022-01-19] MEDS: ACETAMINOPHEN TAB 325 MG TAB PO PRN ×2 (04:13→11:48)
[2022-01-19] MEDS: SENNOSIDES-DOCUSATE SODIUM 1 EACH TAB PO SCH (07:33)
[2022-01-19 07:40] VITALS: BP 106/71; PULSE 70; RESP 16; TEMP 97.8
[2022-01-19 08:07] LABS: Basophils # (A) 0.1 k/uL (0-0.2); Basophils % (A) 0 %; Eosinophils # (A) 0.3 k/uL (0-0.7); Eosinophils % (A) 2 %; HCT 35.8 % (34.0-46.0); Lymphocytes % (A) 31 %; MCH 31.3 pg (25.0-35.0); MCHC 33.6 g/dL (31.0-37.0); MCV 93.3 fL (80.0-100.0); Mean Platelet Volume 9.8; Monocytes % (A) 6 %; Neutrophils # (A) 9.4 k/uL (1.3-7.7); Neutrophils % (A) 59 %; Platelet Count 315 k/uL (150-450); RBC 3.84 m/uL (3.80-5.40); RDW 13.6 % (11.5-15.5)
--- NOTE | 2022-01-19 10:24 | P.DS ---
Providers Date of admission: 01/18/22 10:28 Expected date of discharge: 01/19/22 Attending physician: Cassi Burns Primary care physician: Stated None - Discharge Diagnosis(es) (1) Normal labor Current Visit: No Status: Resolved (2) Spontaneous rupture of membranes Current Visit: No Status: Resolved (3) Normal vaginal delivery Current Visit: No Status: Acute Hospital Course: Patient presented in active labor. She underwent a normal vaginal delivery. course was uncomplicated. She denies nausea, vomiting, chest and, shortness of breath or any calf pain. Patient will be discharged home day #1 in stable condition to follow-up with me in 6 weeks. Plan - Discharge Summary New Discharge Prescriptions: New Ibuprofen [Motrin] 600 mg PO Q6HR PRN #30 tab PRN Reason: Mild Pain (Scale 1 To 3) No Action Vit No.180/Iron/Folic [ Plus Tablet] 1 tab PO DAILY Acyclovir 400 mg PO Q8H PRN PRN Reason: OUTBREAK Discharge Medication List Vit No.180/Iron/Folic [ Plus Tablet] 1 tab PO DAILY 03/01/20 [History] Acyclovir 400 mg PO Q8H PRN 05/16/20 [History] Ibuprofen [Motrin] 600 mg PO Q6HR PRN #30 tab 01/19/22 [Rx] Follow up Appointment(s)/Referral(s): Cassi Burns DO [Doctor of Osteopathic Medicine] - 6 Weeks Discharge Disposition: HOME SELF-CARE
== END 2022-01-19 12:45 | disposition home or self-care (01) | DRG 807 ==
LOC: FBPOP 10:07 → 4FBP 10:28
PROVIDERS: ADMIT Obstetrics & Gynecology; ATTEND Obstetrics & Gynecology
PROC: 10E0XZZ Delivery of Products of Conception, External Approach (ICD-10-PCS; principal; 2022-01-18)
PROC: 4A0HXCZ Measurement of Products of Conception, Cardiac Rate, External Approach (ICD-10-PCS; 2022-01-18)
DX: O42.92 Full-term premature rupture of membranes, unspecified as to length of time between rupture and onset of labor (principal); Z37.0 Single live birth; O62.3 Precipitate labor; O99.334 Smoking (tobacco) complicating childbirth; O48.0 Post-term pregnancy; F17.210 Nicotine dependence, cigarettes, uncomplicated; Z3A.40 40 weeks gestation of pregnancy
CPT/HCPCS: 59025; 84112; 85025; 86850; 86900; 86901; 99213

== ENCOUNTER → 2022-08-13 | Outpatient (CLI) | payer OTHER ==
--- NOTE | 2022-08-13 14:22 | MM ---
Reason for Exam: Clinical finding. Baseline mammogram. Indicated Problems: Non-bloody discharge of the left side for 18 Month(s). Patient History: Menarche at age 17. First Full-Term at age 26. Patient has history of breast feeding. Last menstrual period: 08/06/2022 Prior Study Comparison: Patient's first Mammogram. Tissue Density: The breast tissue is heterogeneously dense. This may lower the sensitivity of mammography. Findings: Analyzed By CAD. No evidence for mass or distortion. No suspicious calcifications. Clinical management with regards to patient's symptoms. Overall Assessment: Negative, BI-RAD 1 Management: Screening Mammogram of both breasts at age 42. A clinical breast exam by your physician is recommended on an annual basis and results should be correlated with mammographic findings. This exam should not preclude additional follow-up of suspicious palpable abnormalities. Results were given to the patient verbally at the time of exam. Electronically signed and approved by: Leif Page M.D. Radiologis
== END | disposition home or self-care (01) ==
LOC: RADMAMWWP 13:00
PROVIDERS: ATTEND Family Medicine
DX: N64.52 Nipple discharge (principal)
CPT/HCPCS: 77066; G0279; 77062

== ENCOUNTER → 2023-02-25 | Outpatient (CLI) | payer OTHER ==
[2023-02-25 20:15] LABS: HGB 13.3 d/dL (12.0-15.0); MCH 29.4 pg (27.0-32.0); MCHC 32.4 d/dL (32.0-37.0); MCV 90.5 FL (80.0-97.0); Mean Platelet Volume 10.8 FL (9.5-12.2); NRBC Per 100 WBC 0 X 10*3/uL (0.00-0.01); Platelet Count 359 X 10*3/uL (140-440); RBC 4.53 X 10*6/uL (4.10-5.20); RDW 12.8 % (11.5-14.5); WBC 12.67 X 10*3/uL (4.50-10.00)
[2023-02-25 23:38] LABS: ALT 19 U/L (8-44); AST 14 U/L (13-35); Albumin 4.3 d/dL (3.8-4.9); Albumin/Globulin Ratio 2.53 Ratio (1.60-3.17); Alkaline Phosphatase 58 U/L (41-126); Blood Urea Nitrogen 10.8 mg/dL (9.0-27.0); Calcium 9.1 mg/dL (8.7-10.3); Carbon Dioxide 21.7 mmol/L (21.6-31.8); Chloride 108 mmol/L (96-109); Chol/HDL Ratio 2.89 Ratio; Globulin 1.7 d/dL (1.6-3.3); Glucose 88 mg/dL (70-110); LDL Cholesterol,Calculated 85.8 mg/dL (0.0-131.0); Potassium 4.1 mmol/L (3.5-5.5); Sodium 141 mmol/L (135-145); Total Bilirubin 0.4 mg/dL (0.3-1.2); VLDL Calculation 18.14 mg/dL (5.00-40.00)
== END | disposition home or self-care (01) ==
LOC: LABWHC1 14:39
PROVIDERS: ATTEND Family Medicine
DX: Z13.228 Encounter for screening for other metabolic disorders (principal); R51.9 Headache, unspecified; R42 Dizziness and giddiness; R73.01 Impaired fasting glucose
CPT/HCPCS: 36415; 80053; 80061; 82375; 83036; 84443; 85027

== ENCOUNTER 2024-02-22 14:22 | Inpatient (IN) | payer MEDICAID, OTHER ==
--- NOTE | 2024-02-22 17:55 | ED ---
General Adult HPI - General Chief complaint: Psychiatric Symptoms Stated complaint: depression Time Seen by Provider: 02/22/24 15:29 Source: patient, family, RN notes reviewed, old records reviewed Mode of arrival: ambulatory Limitations: no limitations - History of Present Illness Initial comments: Is a 34-year-old female presents emergency department complaining of depression, suicidal ideations. Patient does have mental health history. States she takes Vraylar however threw it out as she was having thoughts of wanting to overdose on this medication intent for suicide. She does have a remote history of overdose attempt. Has been feeling more depressed lately, unable to drive, unable to function or take care of herself or her children. Presents with her aunt for psychiatric evaluation. She did not attempt to overdose this time as she throughout her pills before attempting. Denies any homicidal ideations or attempts or plans. Denies visual or auditory hallucinations. Presents for further evaluation. - Related Data Home Medications Medication Instructions Recorded Confirmed No Known Home Medications 02/22/24 02/22/24 Allergies Allergy/AdvReac Type Severity Reaction Status Date / Time No Known Allergies Allergy Verified 02/22/24 16:41 Review of Systems ROS Statement: Those systems with pertinent positive or pertinent negative responses have been documented in the HPI. Review of Systems: CONST: Denies fever EYES: Denies blurry vision ENT: Denies nasal congestion C/V: Denies Chest pain RESP: Denies shortness of breath GI: Denies abdominal pain : Denies dysuria SKIN: Denies rash. MSK: Denies joint pain. NEURO: Denies headache ROS Other: All systems not noted in ROS Statement are negative. Past Medical History Past Medical History: No Reported History Additional Past Medical History / Comment(s): Ob history: First was an elective termination. She then went on to have 3 vaginal deliveries and 1 miscarriage. A+, abs neg, Rub Imm, RPR NR, Hep B neg. GBS neg. normal 1 hour. History of Any Multi-Drug Resistant Organisms: None Reported Past Surgical History: No Surgical Hx Reported Past Anesthesia/Blood Transfusion Reactions: No Reported Reaction Past Psychological History: Bipolar, Depression Smoking Status: Current every day smoker Past Alcohol Use History: None Reported Past Drug Use History: None Reported - Past Family History Mother Family Medical History: No Reported History General Exam - General Exam Comments Initial Comments: General: Appears in no acute distress. HEAD: Normal with no signs of head trauma. EYES: EOMI. ENT: Hearing grossly intact. RESPIRATORY: No respiratory distress. C/V: Regular rate and rhythm. ABD: Abdomen is nondistended. EXT: No obvious deformity. SKIN: No rashes or lesions observed on exposed skin. NEURO: Alert and oriented. Limitations: no limitations Course Vital Signs 02/22/24 14:30 Temperature 98.4 F Pulse Rate 84 Respiratory 18 Rate Blood Pressure 117/84 O2 Sat by Pulse 97 Oximetry Medical Decision Making - Medical Decision Making Was pt. sent in by a medical professional or institution (, PA, STRIKE OPERATIONS OFFICER, urgent care, hospital, or halfway...) When possible be specific @ -No Did you speak to anyone other than the patient for history (EMS, parent, family, police, friend...)? What history was obtained from this source @ -No Did you review nursing and triage notes (agree or disagree)? Why? @ -I reviewed and agree with nursing and triage notes Were old charts reviewed (outside hosp., previous admission, EMS record, old EKG, old radiological studies, urgent care reports/EKG's, halfway records)? Report findings @ -No old charts were reviewed Differential Diagnosis (chest pain, altered mental status, abdominal pain women, abdominal pain men, vaginal bleeding, weakness, fever, dyspnea, syncope, headache, dizziness, GI bleed, back pain, seizure, CVA, palpatations, mental health, musculoskeletal)? @ -Differential Mental Health Depression, anxiety, bipolar, psychosis, schizophrenia, borderline personality, situational depression, adjustment disorder, behavioral disorder, brain tumor, malingering, substance abuse, encephalopathy, medication reaction, dementia, hypothyroidism, degenerative neurologic disorder, lupus.... This is not meant to be all-inclusive list EKG interpreted by me (3pts min.). @ -None done X-rays interpreted by me (1pt min.). @ -None done CT interpreted by me (1pt min.). @ -None done U/S interpreted by me (1pt. min.). @ -None done What testing was considered but not performed or refused? (CT, X-rays, U/S, labs)? Why? @ -None What meds were considered but not given or refused? Why? @ -None Did you discuss the management of the patient with other professionals (professionals i.e. , PA, STRIKE OPERATIONS OFFICER, lab, RT, psych nurse, social worker aide, police chief, teacher, general service officer, corrections caseworker)? Give summary @ -EPS allergy was notified of the patient. She evaluate the patient determine after discussing with psychiatrist that patient does meet inpatient psychiatric criteria. Was smoking cessation discussed for >3mins.? @ -No Was critical care preformed (if so, how long)? @ -No Were there social determinants of health that impacted care today? How? (Homelessness, low income, unemployed, alcoholism, drug addiction, transportation, low edu. Level, literacy, decrease access to med. care, shelter, rehab)? @ -No Was there de-escalation of care discussed even if they declined (Discuss DNR or withdrawal of care, Hospice)? DNR status @ -No What co-morbidities impacted this encounter? (DM, HTN, Smoking, COPD, CAD, Cancer, CVA, ARF, Chemo, Hep., AIDS, mental health diagnosis, sleep apnea, morbid obesity)? @ -History of mental health diagnosis, including depression, possible bipolar Was patient admitted / discharged? Hospital course, mention meds given and ro [place], prescriptions, significant lab abnormalities, going to OR and other pertinent info. @ -Based on patient's presentation and physical exam, patient presents emergency department complaining of depression, suicidal ideations with a plan. Suicide precautions placed. Sitter ordered. Vitals are within acceptable limits. BAT is 0. UDS is pending. At this time, patient is medically cleared for evaluation by psychiatry. EPS allergy notified of the consult. Disposition pending psychiatric evaluation. Was determined after EPS evaluation and discussion with psychiatrist that patient does meet inpatient psychiatric arteria. COVID swab ordered. Patient will be admitted to inpatient psychiatry. She was in agreement with this plan. Undiagnosed new problem with uncertain prognosis? @ -No Drug Therapy requiring intensive monitoring for toxicity (Heparin, Nitro, Insulin, Cardizem)? @ -No Were any procedures done? @ -No Diagnosis/symptom? @ -Depression, suicidal ideations Acute, or Chronic, or Acute on Chronic? @ -Acute Uncomplicated (without systemic symptoms) or Complicated (systemic symptoms)? @ -Complicated Side effects of treatment? @ -No Exacerbation, Progression, or Severe Exacerbation? @ -No Poses a threat to life or bodily function? How? (Chest pain, [place], [place], pneumonia, PE, COPD, DKA, ARF, appy, cholecystitis, CVA, Diverticulitis, Homicidal, Suicidal, threat to staff... and all critical care pts) @ -Yes Disposition Clinical Impression: Depression, Suicidal ideation Disposition: TRANSFER TO PSYCH HOSP/UNIT Condition: Stable Referrals: Kristen Jacobsen DO [Primary Care Provider] - 1-2 days Time of Disposition: 17:30
[2024-02-22] MEDS ORDERED: haloperidoL 5 MG TAB PO PRN (19:29)
[2024-02-22] MEDS ORDERED: MAGNESIUM HYDROXIDE 2,400 MG/30 ML CUP PO PRN (19:29)
[2024-02-22] MEDS ORDERED: HALOPERIDOL LACTATE 5 MG/ML 1 ML VIAL IM PRN (19:29)
[2024-02-22] MEDS ORDERED: LORazepam 2 MG/ML INJ IM PRN (19:29)
[2024-02-22] MEDS ORDERED: MAG HYDROX/AL HYDROX/SIMETH 355 ML BOTTLE PO PRN (19:29)
[2024-02-22] MEDS ORDERED: IBUPROFEN 600 MG TAB PO PRN (19:29)
[2024-02-22] MEDS ORDERED: ACETAMINOPHEN TAB 325 MG TAB PO PRN (19:29)
[2024-02-23] MEDS: LORazepam 1 MG TAB PO PRN (03:47)
[2024-02-23 07:35] LABS: Basophils % (A) 0 %; Eosinophils # (A) 0.2 k/uL (0-0.7); Eosinophils % (A) 2 %; HCT 44.2 % (34.0-46.0); HGB 14.5 gm/dL (11.4-16.0); Lymphocytes # (A) 3.3 k/uL (1.0-4.8); Lymphocytes % (A) 34 %; MCHC 32.9 g/dL (31.0-37.0); MCV 90.9 fL (80.0-100.0); Mean Platelet Volume 7.9; Monocytes # (A) 0.5 k/uL (0-1.0); Monocytes % (A) 5 %; Neutrophils # (A) 5.6 k/uL (1.3-7.7); Neutrophils % (A) 56 %; Platelet Count 372 k/uL (150-450); RBC 4.86 m/uL (3.80-5.40); RDW 12.2 % (11.5-15.5)
[2024-02-23 07:48] LABS: ALT 21 U/L (4-34); AST 21 U/L (14-36); African American GFR (CKD) >90 (>60 ml/min/1.73 sqM); Albumin 4.3 g/dL (3.5-5.0); Alkaline Phosphatase 53 U/L (38-126); Anion Gap 5 mmol/L; Blood Urea Nitrogen 15 mg/dL (7-17); Calcium 9.9 mg/dL (8.4-10.2); Carbon Dioxide 26 mmol/L (22-30); Chloride 108 mmol/L (98-107); Glucose 87 mg/dL (74-99); Non-African American GFR(CKD) >90 (>60 ml/min/1.73 sqM); Potassium 4.8 mmol/L (3.5-5.1); Sodium 139 mmol/L (137-145); Total Bilirubin 0.7 mg/dL (0.2-1.3); Total Protein 6.8 g/dL (6.3-8.2)
[2024-02-23] MEDS: NICOTINE 14MG/24HR PATCH TRANSDERM SCH (08:42)
[2024-02-23 10:21] LABS: Chol/HDL Ratio 3.59 Ratio; LDL Cholesterol,Calculated 93.4 mg/dL (0.0-131.0); VLDL Calculation 14.14 mg/dL (5.00-40.00)
[2024-02-23] MEDS: DULoxetine HCL 30 MG CAPSULE.DR PO SCH (13:15)
--- NOTE | 2024-02-23 13:24 | P.HP ---
Psychiatric H&P - . H&P Date: 02/23/24 History & Physical: Allergies Allergy/AdvReac Type Severity Reaction Status Date / Time No Known Allergies Allergy Verified 02/22/24 16:41 Vital Signs Temp 98.0 F 02/22/24 20:39 Pulse 90 02/23/24 06:40 Resp 16 02/22/24 20:39 BP 96/60 02/23/24 06:40 Pulse Ox 99 02/22/24 20:39 FiO2 Intake & Output 02/22/24 02/23/24 02/23/24 18:59 06:59 18:59 Weight 56.699 kg 57.1 kg Laboratory Last Values WBC 10.0 k/uL (3.8-10.6) 02/23/24 07:08 RBC 4.86 m/uL (3.80-5.40) 02/23/24 07:08 Hgb 14.5 gm/dL (11.4-16.0) 02/23/24 07:08 Hct 44.2 % (34.0-46.0) 02/23/24 07:08 MCV 90.9 fL (80.0-100.0) 02/23/24 07:08 MCH 30.0 pg (25.0-35.0) 02/23/24 07:08 MCHC 32.9 g/dL (31.0-37.0) 02/23/24 07:08 RDW 12.2 % (11.5-15.5) 02/23/24 07:08 Plt Count 372 k/uL (150-450) 02/23/24 07:08 MPV 7.9 02/23/24 07:08 Neutrophils % 56 % 02/23/24 07:08 Lymphocytes % 34 % 02/23/24 07:08 Monocytes % 5 % 02/23/24 07:08 Eosinophils % 2 % 02/23/24 07:08 Basophils % 0 % 02/23/24 07:08 Neutrophils # 5.6 k/uL (1.3-7.7) 02/23/24 07:08 Lymphocytes # 3.3 k/uL (1.0-4.8) 02/23/24 07:08 Monocytes # 0.5 k/uL (0-1.0) 02/23/24 07:08 Eosinophils # 0.2 k/uL (0-0.7) 02/23/24 07:08 Basophils # 0.0 k/uL (0-0.2) 02/23/24 07:08 Sodium 139 mmol/L (137-145) 02/23/24 07:08 Potassium 4.8 mmol/L (3.5-5.1) 02/23/24 07:08 Chloride 108 mmol/L (98-107) H 02/23/24 07:08 Carbon Dioxide 26 mmol/L (22-30) 02/23/24 07:08 Anion Gap 5 mmol/L 02/23/24 07:08 BUN 15 mg/dL (7-17) 02/23/24 07:08 Creatinine 0.73 mg/dL (0.52-1.04) 02/23/24 07:08 Est GFR (CKD-EPI)AfAm >90 (>60 ml/min/1.73 sqM) 02/23/24 07:08 Est GFR (CKD-EPI)NonAf >90 (>60 ml/min/1.73 sqM) 02/23/24 07:08 Glucose 87 mg/dL (74-99) 02/23/24 07:[address] Glu mg/dL 100 mg/dL 02/23/24 07:08 Hemoglobin A1c 5.1 % (<=6.0) 02/23/24 07:08 Calcium 9.9 mg/dL (8.4-10.2) 02/23/24 07:08 Total Bilirubin 0.7 mg/dL (0.2-1.3) 02/23/24 07:08 AST 21 U/L (14-36) 02/23/24 07:08 ALT 21 U/L (4-34) 02/23/24 07:08 Alkaline Phosphatase 53 U/L (38-126) 02/23/24 07:08 Total Protein 6.8 g/dL (6.3-8.2) 02/23/24 07:08 Albumin 4.3 g/dL (3.5-5.0) 02/23/24 07:08 Triglycerides 70.70 mg/dL (0.00-149.00) 02/23/24 07:08 Cholesterol 149.00 mg/dL (0.00-200.00) 02/23/24 07:08 LDL Cholesterol, Calc 93.4 mg/dL (0.0-131.0) 02/23/24 07:08 VLDL Cholesterol, Calc 14.14 mg/dL (5.00-40.00) 02/23/24 07:08 HDL Cholesterol 41.50 mg/dL (40.00-60.00) 02/23/24 07:08 Cholesterol/HDL Ratio 3.59 Ratio 02/23/24 07:08 TSH 1.490 mIU/L (0.465-4.680) 02/23/24 07:08 Influenza Type A (PCR) Not Detected (Not Detectd) 02/22/24 17:11 Influenza Type B (PCR) Not Detected (Not Detectd) 02/22/24 17:11 RSV (PCR) Not Detected (Not Detectd) 02/22/24 17:11 SARS-CoV-2 (PCR) Not Detected (Not Detectd) 02/22/24 17:11 02/23/24 13:08 IDENTIFYING DATA: Patient is a 34-year-old single female, employed working at [employer], currently living in [place] with her 4 children CHIEF COMPLAINT: Racing thoughts HPI: Patient presented to the hospital on 02/21 with chief complaint of depression. Per ED note, "Is a 34-year-old female presents emergency department complaining of depression, suicidal ideations. Patient does have mental health history. States she takes Vraylar however threw it out as she was having thoughts of wanting to overdose on this medication intent for suicide. She does have a remote history of overdose attempt. Has been feeling more depressed lately, unable to drive, unable to function or take care of herself or her children. Presents with her aunt for psychiatric evaluation. She did not attempt to overdose this time as she throughout her pills before attempting. Denies any homicidal ideations or attempts or plans. Denies visual or auditory hallucinations. Presents for further evaluation." Per EPS assessment, "patient states she has been experiencing worsening depression and that "I just feel like him suffering." Patient reports that she has not had any motivation and is having difficulty caring for herself due to this. Patient states that she "cannot handle anything" that she does not want to be around people or get out of bed. Patient reports that she had been on Vraylar 1.5 mg daily, but did not feel as though it was working. Patient states her doctor increased her dosage to 3 mg daily which she took for several days before she states it made her feel worse." Patient seen and evaluated on the unit and was agreeable to speak to the technical writer and editor in the office. She reports a history of bipolar disorder and states she has been dealt with racing thoughts in the past that led to inpatient hospitalization however once discharged she stopped taking her medications and just dealt with them on her own. She reports roughly 2 months ago she was started on Vraylar 1.5 mg for this and this was recently increased to 3 mg daily however she stopped this on 02/16 due to her feeling worse at this dose. She reports predominant depressive symptoms including low energy, poor appetite and sleep, poor concentration, and passive suicidal thoughts with no plan or intent. She states having her 4 kids to live for and that she would never attempt suicide because of them however does report a history of suicide attempt as a teenager. He also reports racing thoughts that impacts her ability to focus and pay attention. She states her symptoms have impacted her ability to drive as she panics whenever she is driving and is unable to be around other people at her job or take care of her kids. Patient denies any suicidal or homicidal ideations intent or plan. At this time patient denies any auditory or visual hallucinations. Patient denies any flight of ideas, increased risky behaviors, grandiosity and increased in goal directed behavior. Patient admits to using cannabis daily but denies any other illicit drug use. PAST PSYCHIATRIC HISTORY: Patient has a history of bipolar disorder. Patient recently was prescribed Vraylar 3 mg however has been nonadherent with this medication. She has tried Abilify, Celexa, Zoloft, Xanax, and BuSpar in the past. He reports 2 prior hospitalizations with both being suicide attempts most recent at age 19 via OD. She sees therapist Jack at [facility] however does not have a psychiatrist. PMH: as per ER note ALLERGIES: as per EMR SUBSTANCE USE HISTORY: Patient reports smoking either a joint or blunt per day of cannabis and smoking 1 pack/day of nicotine. She denied any alcohol use. FAMILY PSYCHIATRIC/SUBSTANCE USE HISTORY: States her father abused alcohol SOCIAL HISTORY: Patient was born and raised in [place]. She has 4 children. Highest level of education is high school and she is currently working at [employer]. MENTAL STATUS EXAM: General Appearance: Patient appears to be stated age is alert, directable, and attempts to cooperate. Patient appears to have poor hygiene and grooming. She has long blond hair and is thin. Behavior: Patient is seated without any agitated behavior. Tearful at times Speech: Patient's speech is fluent and nonpressured. Mood/Affect: Patient reports their mood is depressed, affect is congruent and constricted. Suicidality/Homicidality: Patient denies having any homicidal ideation intent or plan. She reports passive suicidal thoughts with no plan or intent Perceptions: Patient denies any visual hallucinations and denies any auditory hallucinations Though content/process: There is no evidence of any delusional thought content and thought process is linear and goal-directed. Memory and concentration: AOX3, grossly intact for the purposes of this session. Can spell "WORLD" backwards Judgment and insight: Fair STRENGTHS/WEAKNESSES: strength is that patient is resilient and has 4 children to live for. Weakness is that patient has poor judgment and is impulsive INTELLECT: Average IMPRESSIONS: Major depressive disorder, recurrent, moderate Rule out bipolar 2 disorder Generalized anxiety disorder Nicotine dependence Cannabis use disorder PLAN: -Patient is admitted under voluntary status to MHU for stabilization of psychiatric symptoms and safety. Patient has signed adult voluntary form and medication consent and is placed in patient's chart. -Medications : Start Cymbalta 30 mg daily for depression/anxiety, Seroquel 50 mg at bedtime for mood stabilization/sleep -Ativan and Haldol PRN for agitation/aggression -Patient was counselled on substance abuse and desired to cut back on use -Patient was informed of the risks, benefits and side effects of the medication and patient verbally consented to taking the medications. Patient signed med consent form and was placed in chart. -Internal Medicine consult to perform medical evaluation and physical. -NRT -nicotine patch -SW on board for discharge planning. Encourage patient to participate in groups to work on coping skills.
[2024-02-23] MEDS: NICOTINE GUM (POLACRILEX) 2 MG GUM BUCCAL PRN (14:03)
[2024-02-23] MEDS: QUEtiapine 50 MG TAB PO SCH (21:34)
[2024-02-24] MEDS: DULoxetine HCL 30 MG CAPSULE.DR PO STA (10:02)
--- NOTE | 2024-02-24 10:43 | P.PN ---
Progress Note - Text Progress Note Date: 02/24/24 Interval History: Patient was seen sitting in the dayroom playing cards and was directable and a greeable to speak with keno writer / runner in the office. She continues to report difficulties with her memory and being more forgetful but then states that this has been going on her entire life has not worsened. She was encouraged to consider neuropsychological testing once discharged for further evaluation regarding this. Patient continues to display guilt and poor self-esteem and psychoeducation provided on depression and how this is contributing to the symptoms. Patient otherwise states she felt better today and that her racing thoughts have slowed and she slept good. She states she was able to take a shower and attend to her ADLs. She denied any anxiety today and reported low depression. Spoke with patient's mom Eugenia and addressed her concerns regarding medications and patient's issues with self-esteem. Mother denied any firearms at home. Mother expresses that patient has not fully healed from past trauma related to her father. Patient does see a counselor regularly and was encourag ed to work on these things there. At this time patient denies any suicidal or homicidal ideations, intent or plan. Patient denies any auditory, visual hallucinations and denies any paranoia or delusions. Patient denies any side effects from the medications and has been compliant with meds. Mental Status Exam: General Appearance: Patient appears to be stated age is alert, directable, and cooperative. Fair hygiene today. Patient has long blond hair pulled back in a ponytail Behavior: Patient is calmly seated without any agitated behavior. Speech: Patient's speech is fluent and nonpressured. Mood/Affect: Mood is improving mildly, affect is congruent and more reactive. Suicidality/Homicidality: Patient denies having any suicidal or homicidal ideation intent or plan. Perceptions: Patient denies any visual hallucinations and denies any auditory hallucinations Though content/process: There is no evidence of any delusional thought content and thought process is linear and goal-directed. Memory and concentration: AOX3, grossly intact for the purposes of this session Judgment and insight: Improving mildly Assessment Major depressive disorder, recurrent, moderate Rule out bipolar 2 disorder Generalized anxiety disorder Nicotine dependence Cannabis use disorder Plan: -Patient continues to meet criteria for inpatient psychiatric admission for symptom stabilization and safety. Patient has signed adult voluntary form and medication consent and was placed in patient's chart. -Medications: Increase Cymbalta to 60 mg daily for depression/anxiety and continue Seroquel 50 mg at bedtime for mood stabilization/sleep -When necessary Ativan and Haldol for agitation/aggression. -Labs: Reviewed -NRT -nicotine patch -SW on board for discharge planning. Encouraged the patient to participate in milieu. Anticipate discharge home tomorrow, safety check done with mom today who ensured no firearms at home
[2024-02-25 07:22] VITALS: BP 96/61; PULSE 90; RESP 18; TEMP 97.8
[2024-02-25 08:05] LABS: Amphetamine Screen,Urine Not Detected (NotDetected); Barbiturate Screen,Urine Not Detected (NotDetected); Benzodiazepines Screen,Urine Not Detected (NotDetected); Cocaine Screen,Urine Not Detected (NotDetected); Methadone Screen, Urine Not Detected (NotDetected); Opiate Screen,Urine Not Detected (NotDetected); Oxycodone Screen, Urine Not Detected (NotDetected); Phencyclidine Screen,Urine Not Detected (NotDetected); Tricyclic Antidepressant,Urine Detected (NotDetected); Urn Cannabinoid Scrn Detected (NotDetected)
[2024-02-25] MEDS ORDERED: DULoxetine HCL 60 MG CAPSULE.DR PO SCH (09:00)
[2024-02-25] MEDS: DULoxetine HCL 30 MG CAPSULE.DR PO SCH (09:06)
--- NOTE | 2024-02-25 11:27 | P.DS ---
Providers Date of admission: 02/22/24 18:30 Expected date of discharge: 02/25/24 Attending physician: Tanya Snider MD Consults: 02/22/24 19:29 Consult Physician Routine Consulting Provider: Harish Bowman Consult Reason/Comments: H&P and medical Do you want consulting provider notified?: Yes, Notify in am Primary care physician: Kristen Jacobsen - Discharge Diagnosis(es) (1) Major depressive disorder, recurrent episode, moderate Current Visit: Yes Status: Acute Priority: High (2) Generalized anxiety disorder Current Visit: Yes Status: Acute Priority: High (3) Nicotine dependence Current Visit: Yes Status: Acute Priority: Low (4) Cannabis use disorder Current Visit: Yes Status: Acute Priority: Low Hospital Course: Admission HPI: Admission note was completed by commercial loan underwriter "Patient presented to the hospital on 02/21 with chief complaint of depression. Per ED note, "Is a 34-year-old female presents emergency department complaining of depression, suicidal ideations. Patient does have mental health history. States she takes Vraylar however threw it out as she was having thoughts of wanting to overdose on this medication intent for suicide. She does have a remote history of overdose attempt. Has been feeling more depressed lately, unable to drive, unable to function or take care of herself or her children. Presents with her aunt for psychiatric evaluation. She did not attempt to overdose this time as she throughout her pills before attempting. Denies any homicidal ideations or attempts or plans. Denies visual or auditory hallucinations. Presents for further evaluation." Per EPS assessment, "patient states she has been experiencing worsening depression and that "I just feel like him suffering." Patient reports that she has not had any motivation and is having difficulty caring for herself due to this. Patient states that she "cannot handle anything" that she does not want to be around people or get out of bed. Patient reports that she had been on Vraylar 1.5 mg daily, but did not feel as though it was working. Patient states her doctor increased her dosage to 3 mg daily which she took for several days before she states it made her feel worse." Patient seen and evaluated on the unit and was agreeable to speak to the commercial loan underwriter in the office. She reports a history of bipolar disorder and states she has been dealt with racing thoughts in the past that led to inpatient hospitalization however once discharged she stopped taking her medications and just dealt with them on her own. She reports roughly 2 months ago she was started on Vraylar 1.5 mg for this and this was recently increased to 3 mg daily however she stopped this on 02/16 due to her feeling worse at this dose. She reports predominant depressive symptoms including low energy, poor appetite and sleep, poor concentration, and passive suicidal thoughts with no plan or intent. She states having her 4 kids to live for and that she would never attempt suicide because of them however does report a history of suicide attempt as a teenager. He also reports racing thoughts that impacts her ability to focus and pay attention. She states her symptoms have impacted her ability to drive as she panics whenever she is driving and is unable to be around other people at her job or take care of her kids. Patient denies any suicidal or homicidal ideations intent or plan. At this time patient denies any auditory or visual hallucinations. Patient denies any flight of ideas, increased risky behaviors, grandiosity and increased in goal directed behavior. Patient admits to using cannabis daily but denies any other illicit drug use." Hospital course: Upon admission to the unit patient was directable and agreeable to commence treatment and signed adult voluntary form. Patient got along well with other patients on the unit and followed unit protocol. Patient was compliant with the medications and denied any side effects throughout hospital course. Patient was started on Cymbalta and this was increased to 60 mg daily however patient reported worsening in anhedonia and psychomotor slowing but this was decreased back down to 30 mg daily. Patient was also started on Seroquel 50 mg at bedtime for mood stabilization/sleep and was effective. Patient spoke of her stressors and engaged in therapy both group and individual. Patient reported a efrain gstanding history of cognitive impairments including word finding difficulties and memory impairment was strongly encouraged to do a neuropsychological test to evaluate further. Patient reported heavy cannabis use and discussion was held regarding this also being a contributing factor to her cognitive impairments and was strongly encouraged to discontinue her use upon discharge. Patient was also seen by medical team for history and physical exam. Throughout the course of the hospitalization patient gradually improved with regards to mood, anxiety, sleep and returned back to their baseline level of functioning became more future oriented with improved insight and judgment. On the day of discharge patient denied any suicidal or homicidal ideations intent or plan denied any auditory or visual hallucinations. The patient denied any access to guns or weapons. Patient denied any paranoia and did not endorse any delusions. Patient does not have a significant history of substance abuse and was counseled on abstaining from all substances including alcohol and marijuana. Patient was also counseled on the medications and need for regular compliance and was encouraged to follow-up with their outpatient appointment for mental health and also for primary care. Prior to discharge a family meeting will be arranged by renal social worker to answer any questions and ensure safety upon discharge incuding making sure that guns/weapons are either removed from the home or locked away. Mental status exam: General Appearance: Patient appears to be stated age is alert, pleasant, and cooperative. Patient is in no acute distress and has improved hygiene and grooming Behavior: Patient is calmly seated without any agitated behavior. Speech: Patient's speech is fluent and nonpressured. Mood/Affect: Patient reports their mood is "good", affect is congruent and euthymic, more reactive than previous encounters. Suicidality/Homicidality: Patient denies having any suicidal or homicidal ideation intent or plan. Perceptions: Patient denies any auditory or visual hallucinations. Though content/process: There is no evidence of any delusional thought content and thought process is linear and goal-directed. More future oriented Memory and concentration: AOX3, grossly intact for the purposes of this session. Can spell "WORLD" backwards correctly. Judgment and insight: Fair Impression: Major depressive disorder, recurrent, moderate Generalized anxiety disorder Nicotine dependence Cannabis use disorder Plan: -Continue with discharge today as patient has improved and stabilized psychia trically and is not currently an imminent threat to themself and/or others. -Continue medications: Cymbalta 30 mg daily for depression/anxiety and Seroquel 50 mg at bedtime for mood stabilization/sleep -Patient was counseled on the need for medication compliance and appropriate follow-up at mental health and also primary care for medical issues. Patient verbalized understanding and agreed. -Social work to help coordinate patients discharge today arrange for and conduct family meeting to ensure safety upon discharge and answer any questions/concerns. also to ensure safe home environment that guns/weapons are either removed from the home or locked away. Social work also to arrange for patients follow up appointments with [facility] for [facility] along with follow up with primary care provider. -Patient counseled on abstaining from recreational drugs and marijuana and alcohol. Was informed/educated on the adverse effects on their physical and mental health. Patient verbally agreed and understood. -Patient was instructed to return to the hospital or seek immediate medical care if their psychiatric or medical symptoms do worsen or reoccur. Abnormal Labs 02/23/24 02/25/24 07:08 07:13 Chloride 108 H U Tricyclic Antidepress Detected H U Marijuana (THC) Screen Detected H Vital Signs Temp 97.8 F 02/25/24 06:00 Pulse 90 02/25/24 06:00 Resp 18 02/25/24 06:00 BP 96/61 02/25/24 06:00 Pulse Ox 96 02/25/24 06:00 FiO2 Allergies Allergy/AdvReac Type Severity Reaction Status Date / Time No Known Allergies Allergy Verified 02/22/24 16:41 Patient Condition at Discharge: Stable Plan - Discharge Summary Discharge Rx Participant: Yes New Discharge Prescriptions: New DULoxetine HCL [Cymbalta] 30 mg PO DAILY 30 Days #30 cap Nicotine Gum (Polacrilex) [Nicorette] 2 mg BUCCAL Q4HR PRN pieceofgum PRN Reason: Nicotine Cravings QUEtiapine [SEROquel] 50 mg PO HS 30 Days #30 tab Nicotine 14Mg/24Hr Patch [Habitrol] 1 patch TRANSDERM DAILY patch Discharge Medication List DULoxetine HCL [Cymbalta] 30 mg PO DAILY 30 Days #30 cap 02/25/24 [Rx] Nicotine 14Mg/24Hr Patch [Habitrol] 1 patch TRANSDERM DAILY patch 02/25/24 [Rx] Nicotine Gum (Polacrilex) [Nicorette] 2 mg BUCCAL Q4HR PRN pieceofgum 02/25/24 [Rx] QUEtiapine [SEROquel] 50 mg PO HS 30 Days #30 tab 02/25/24 [Rx] Follow up Appointment(s)/Referral(s): [facility] [Outside] - 1 Week Kristen Jacobsen DO [Primary Care Provider] - 1-2 days Patient Instructions/Handouts: Depression (DC) Activity/Diet/Wound Care/Special Instructions: U Discharge Info Avoid the use of street drugs and alcohol. Take all medications as prescribed. When you are in need of refills on your medications, please contact your outpatient medical provider and/or outpatient psychiatrist. Please go to your scheduled outpatient appointments for aftercare treatment. If symptoms return or become worse, call the crisis line at or and/or visit the nearest emergency room for assistance. [place] [facility]icide and Crisis Lifeline - call or text [phone]. Discharge Disposition: HOME SELF-CARE
== END 2024-02-25 14:15 | disposition home or self-care (01) | DRG 751 ==
LOC: EC 14:22 → 3MHU 18:30
PROVIDERS: ADMIT Psychiatry & Neurology Psychiatry; ATTEND Psychiatry & Neurology Psychiatry
DX: F33.1 Major depressive disorder, recurrent, moderate (principal); F12.90 Cannabis use, unspecified, uncomplicated; F17.200 Nicotine dependence, unspecified, uncomplicated; F31.9 Bipolar disorder, unspecified; F41.1 Generalized anxiety disorder; R45.851 Suicidal ideations; Z79.899 Other long term (current) drug therapy; Z91.128 Patient's intentional underdosing of medication regimen for other reason; Z91.51 Personal history of suicidal behavior
CPT/HCPCS: 80053; 80061; 80306; 82075; 83036; 84443; 85025; 87636; 99285

== ENCOUNTER → 2024-04-24 | Outpatient (CLI) | payer OTHER ==
--- NOTE | 2024-04-25 05:41 | MR ---
EXAMINATION TYPE: MR brain wo/w con DATE OF EXAM: 04/24/2024 3:32 PM COMPARISON: None. CLINICAL INDICATION: Female, 34 years old with history of H53.149 VISUAL DISCOMFORT, UNSPECIFIED R42 DIZZINE, NO prior, dizziness, memory loss, confusion, hearing loss, no trauma, no seizure, no CVA, no CA TECHNIQUE: Multiplanar, multiecho imaging on a 3.0 [place]na magnet is performed through the brain. Stud y is performed within 24 hours of arrival to the hospital.Multiplanar, multiecho imaging on a 3.0 Missy la magnet is performed through the knee. IV Contrast: 6 mL Gadobutrol (None, if empty) FINDINGS: The craniovertebral junction is normal. The pituitary is normal. Optic chiasm is visualized is norm al Diffusion-weighted imaging is performed. No abnormal hyperintensity is present to suggest an acute i ntracranial infarct or acute ischemic change. There is some distortion on this sequence due to suscep tibility artifact. No suspicious signal abnormality is evident. Note is made of a venous angioma within the left subdura l region, normal variant Ventricles and sulci are appropriate for the patient age. IMPRESSION: 1. No acute intracranial process Pre or Postcontrast. [facility], , 04/25/2024 5:39 AM
== END | disposition home or self-care (01) ==
LOC: RADMRIMAIN 14:28
PROVIDERS: ATTEND Family Medicine
DX: H53.149 Visual discomfort, unspecified (principal); R42 Dizziness and giddiness
CPT/HCPCS: 70553; A9585

== ENCOUNTER 2024-10-15 01:50 | Emergency (ER) | payer OTHER ==
--- NOTE | 2024-10-15 02:14 | ED ---
General Adult HPI - General Source: patient, RN notes reviewed Mode of arrival: wheelchair Limitations: no limitations <Kavitha Redmond - Last Filed: 10/15/24 04:01> <Spencer Okeefe - Last Filed: 10/15/24 05:36> - General Chief complaint: Nausea/Vomiting/Diarrhea Stated complaint: Overdose Time Seen by Provider: 10/15/24 01:59 - History of Present Illness Initial comments: 34-year-old female presenting to emergency room with complaints of nausea, vomiting, headache. Patient states that over the past few days she has been experiencing intermittent headaches which she has been attributing to her menstrual cycle. States that this evening she took 4 tablets which she assumed to be ibuprofen however states that she began to feel nauseated and dizzy. She states that she called her mother and described the medications to her where she reports that these medications are a muscle relaxer, baclofen. Is reported that patient took 40 mg of this medication. Currently states that her headache is resolved however feels nauseous. Denies abdominal pain, cough, rhinorrhea, congestion, difficulty breathing (Kavitha Redmond) - Related Data Previous Rx's Medication Instructions Recorded DULoxetine HCL [Cymbalta] 30 mg PO DAILY 30 Days #30 cap 02/25/24 Nicotine 14Mg/24Hr Patch [Habitrol] 1 patch TRANSDERM DAILY patch 02/25/24 Nicotine Gum (Polacrilex) 2 mg BUCCAL Q4HR PRN pieceofgum 02/25/24 [Nicorette] QUEtiapine [SEROquel] 50 mg PO HS 30 Days #30 tab 02/25/24 Allergies Allergy/AdvReac Type Severity Reaction Status Date / Time No Known Allergies Allergy Verified 10/15/24 01:52 Review of Systems ROS Other: All systems not noted in ROS Statement are negative. <Kavitha Redmond - Last Filed: 10/15/24 04:01> ROS Other: All systems not noted in ROS Statement are negative. <Spencer Okeefe - Last Filed: 10/15/24 05:36> ROS Statement: Those systems with pertinent positive or pertinent negative responses have been documented in the HPI. Past Medical History Past Medical History: No Reported History Additional Past Medical History / Comment(s): Ob history: First was an elective termination. She then went on to have 3 vaginal deliveries and 1 miscarriage. A+, abs neg, Rub Imm, RPR NR, Hep B neg. GBS neg. normal 1 hour. History of Any Multi-Drug Resistant Organisms: None Reported Past Surgical History: No Surgical Hx Reported Past Anesthesia/Blood Transfusion Reactions: No Reported Reaction Past Psychological History: Bipolar, Depression Smoking Status: Current every day smoker Past Alcohol Use History: Rare Past Drug Use History: Marijuana - Past Family History Mother Family Medical History: No Reported History <Kavitha Redmond - Last Filed: 10/15/24 04:01> General Exam Limitations: no limitations General appearance: alert, in no apparent distress Eye exam: Present: normal appearance, PERRL, EOMI. Absent: scleral icterus, conjunctival injection, periorbital swelling Neck exam: Present: normal inspection. Absent: tenderness, meningismus, lymphadenopathy Respiratory exam: Present: normal lung sounds bilaterally. Absent: respiratory distress, wheezes, rales, rhonchi, stridor Cardiovascular Exam: Present: regular rate, normal rhythm, normal heart sounds. Absent: systolic murmur, diastolic murmur, rubs, gallop, clicks GI/Abdominal exam: Present: soft, normal bowel sounds. Absent: distended, tenderness, guarding, rebound, rigid Extremities exam: Present: normal inspection, full ROM, normal capillary refill. Absent: tenderness, pedal edema, joint swelling, calf tenderness Back exam: Present: normal inspection <Kavitha Redmond - Last Filed: 10/15/24 04:01> Course Vital Signs 10/15/24 10/15/24 10/15/24 01:52 02:31 03:48 Temperature 97.7 F Pulse Rate 79 66 71 Respiratory 18 18 16 Rate Blood Pressure 115/70 99/71 98/69 O2 Sat by Pulse 96 99 96 Oximetry Medical Decision Making - Lab Data Result diagrams: 10/15/24 02:19 10/15/24 02:19 <Kavitha Redmond - Last Filed: 10/15/24 04:01> - Lab Data Result diagrams: 10/15/24 02:19 10/15/24 02:19 <Spencer Okeefe - Last Filed: 10/15/24 05:36> - Medical Decision Making Was pt. sent in by a medical professional or institution (Dr., PA, [facility], urgent care, hospital, or long-term...) When possible be specific @ -[No] Did you speak to anyone other than the patient for history (EMS, parent, family, police, friend...)? What history was obtained from this source @ -[No] Did you review nursing and triage notes (agree or disagree)? Why? @ -[I reviewed and agree with nursing and triage notes] Were old charts reviewed (outside hosp., previous admission, EMS record, old EKG, old radiological studies, urgent care reports/EKG's, long-term records)? Report findings @ -[No old charts were reviewed] Differential Diagnosis (chest pain, altered mental status, abdominal pain women, abdominal pain men, vaginal bleeding, weakness, fever, dyspnea, syncope, headache, dizziness, GI bleed, back pain, seizure, CVA, palpatations, mental health, musculoskeletal)? @ -Differential Abdominal Pain Women: Appendicitis, Cholecystitis, diverticulosis, ischemic bowel, pancreatitis, hepatitis, UTI, gastroenteritis, AAA, incarcerated hernia, bowel obstruction, constipation, inflammatory bowel, hepatitis, peptic ulcer disease, splenic i nfarction, perforated viscus, vulvitis, ovarian torsion, PID, kidney stone, placenta abruption, this is not meant to be an all-inclusive list EKG interpreted by me (3pts min.). @ -none X-rays interpreted by me (1pt min.). @ -[None done] CT interpreted by me (1pt min.). @ -[None done] U/S interpreted by me (1pt. min.). @ -[None done] What testing was considered but not performed or refused? (CT, X-rays, U/S, labs)? Why? @ -[None] What meds were considered but not given or refused? Why? @ -[None] Did you discuss the management of the patient with other professionals (professionals i.e. [facility] Kang, [facility], lab, RT, psych nurse, social work program coordinator, fuel quality tech, teacher, president and chief commercial officer, case management rn)? Give summary @ -[No] Was smoking cessation discussed for >3mins.? @ -[No] Was critical care preformed (if so, how long)? @ -[No] Were there social determinants of health that impacted care today? How? (Homelessness, low income, unemployed, alcoholism, drug addiction, transportation, low edu. Level, literacy, decrease access to med. care, [facility], rehab)? @ -[No] Was there de-escalation of care discussed even if they declined (Discuss DNR or withdrawal of care, Hospice)? DNR status @ -[No] What co-morbidities impacted this encounter? (DM, HTN, Smoking, COPD, CAD, Cancer, CVA, ARF, Chemo, Hep., AIDS, mental health diagnosis, sleep apnea, morbid obesity)? @ -[None] Was patient admitted / discharged? Hospital course, mention meds given and route, prescriptions, significant lab abnormalities, going to OR and other pertinent info. @ -34-year-old female presenting with concerns of nausea, vomiting after concern of potential of accidental overdose. Overall patient is well-appearing initial vitals are stable, alert and oriented X4. Patient is provided with IV fluids and antiemetics. Labs reveal leukocytosis of 14 likely reactive secondary to emesis. CMP is unremarkable. Toxicology is negative. Patient signed out to attending, Dr. Okeefe, pending UA drug screen/hcg and disposition. Undiagnosed new problem with uncertain prognosis? @ -[No] Drug Therapy requiring intensive monitoring for toxicity (Heparin, Nitro, Insulin, Cardizem)? @ -[No] Were any procedures done? @ -[No] Diagnosis/symptom? @ -[default] Acute, or Chronic, or Acute on Chronic? @ -[default] Uncomplicated (without systemic symptoms) or Complicated (systemic symptoms)? @ -[default] Side effects of treatment? @ -[No] Exacerbation, Progression, or Severe Exacerbation? @ -[No] Poses a threat to life or bodily function? How? (Chest pain, USA, PR, pneumonia, PE, COPD, DKA, ARF, appy, cholecystitis, CVA, Diverticulitis, Homicidal, Suicidal, threat to staff... and all critical care pts) @ -[No] (Kavitha Redmond) Patient care signed out to me by physician registered medical assistant. Patient presents with nausea vomiting headache. Patient concerned that she may have taken too much of a an unknown medication. Plan at signout was to follow-up with pending urine studies. Urine is negative. Labs unremarkable patient reevaluated bedside at 5:36 AM found to be in stable condition. Patient states she feels well will be discharged. (Spencer Okeefe) - Lab Data Lab Results 10/15/24 10/15/24 10/15/24 Range/Units 02:19 02:19 03:58 WBC 14.44 H (4.50-10.00) 10*3/uL RBC 4.16 (4.10-5.20) 10*6/uL Hgb 12.6 (12.0-15.0) g/dL Hct 36.1 L (37.2-46.3) % MCV 86.8 (80.0-97.0) fL MCH 30.3 (27.0-32.0) pg MCHC 34.9 (32.0-37.0) g/dL Plt Count 275 (140-440) 10*3/uL MPV 10.3 (9.5-12.2) fL Immature Gran % (Auto) 0.4 % Neutrophils % 66.5 % Lymphocytes % 23.4 % Monocytes % 7.9 % Eosinophils % 1.5 % Basophils % 0.3 % Immature Gran # 0.06 H (0.00-0.04) 10*3/uL Neutrophils # 9.61 H (1.80-7.70) 10*3/uL Lymphocytes # 3.38 (0.90-5.00) 10*3/uL Monocytes # 1.14 H (0.20-1.00) 10*3/uL Eosinophils # 0.21 (0.04-0.35) 10*3/uL Basophils # 0.04 (0.00-0.10) 10*3/uL Sodium 139 (137-145) mmol/L Potassium 3.5 (3.5-5.1) mmol/L Chloride 107 (98-107) mmol/L Carbon Dioxide 23 (22-30) mmol/L Anion Gap 9 mmol/L BUN 15 (7-17) mg/dL Creatinine 0.71 (0.52-1.04) mg/dL Est GFR (CKD-EPI)AfAm >90 (>60 ml/min/1.73 sqM) Est GFR (CKD-EPI)NonAf >90 (>60 ml/min/1.73 sqM) Glucose 107 H (74-99) mg/dL Calcium 9.1 (8.4-10.2) mg/dL Magnesium 1.7 (1.6-2.3) mg/dL Total Bilirubin 0.6 (0.2-1.3) mg/dL AST 27 (14-36) U/L ALT 25 (4-34) U/L Alkaline Phosphatase 58 (38-126) U/L Total Protein 6.2 L (6.3-8.2) g/dL Albumin 3.9 (3.5-5.0) g/dL Lipase 81 (23-300) U/L Urine Color Yellow Urine Appearance Clear (Clear) Urine pH 6.5 (5.0-8.0) Ur Specific [place] 1.026 (1.001-1.035) Urine Protein Negative (Negative) Urine Glucose (UA) Negative (Negative) Urine Ketones 1+ H (Negative) Urine Blood Negative (Negative) Urine Nitrite Negative (Negative) Urine Bilirubin Negative (Negative) Urine Urobilinogen 2.0 (<2.0) mg/dL Ur Leukocyte Esterase Negative (Negative) Urine HCG, Qual (Not Detectd) Salicylates <1.0 mg/dL Urine Opiates Screen (NotDetected) Ur Oxycodone Screen (NotDetected) Urine Methadone Screen (NotDetected) Ur Barbiturates Screen (NotDetected) U Tricyclic Antidepress (NotDetected) Ur Phencyclidine Scrn (NotDetected) Ur Amphetamines Screen (NotDetected) U Methamphetamines Scrn (NotDetected) U Benzodiazepines Scrn (NotDetected) Urine Cocaine Screen (NotDetected) U Marijuana (THC) Screen (NotDetected) Serum Alcohol <10 mg/dL Acetone, Qual Negative (Negative) 10/15/24 10/15/24 Range/Units 03:58 03:58 WBC (4.50-10.00) 10*3/uL RBC (4.10-5.20) 10*6/uL Hgb (12.0-15.0) g/dL Hct (37.2-46.3) % MCV (80.0-97.0) fL MCH (27.0-32.0) pg MCHC (32.0-37.0) g/dL Plt Count (140-440) 10*3/uL MPV (9.5-12.2) fL Immature Gran % (Auto) % Neutrophils % % Lymphocytes % % Monocytes % % Eosinophils % % Basophils % % Immature Gran # (0.00-0.04) 10*3/uL Neutrophils # (1.80-7.70) 10*3/uL Lymphocytes # (0.90-5.00) 10*3/uL Monocytes # (0.20-1.00) 10*3/uL Eosinophils # (0.04-0.35) 10*3/uL Basophils # (0.00-0.10) 10*3/uL Sodium (137-145) mmol/L Potassium (3.5-5.1) mmol/L Chloride (98-107) mmol/L Carbon Dioxide (22-30) mmol/L Anion Gap mmol/L BUN (7-17) mg/dL Creatinine (0.52-1.04) mg/dL Est GFR (CKD-EPI)AfAm (>60 ml/min/1.73 sqM) Est GFR (CKD-EPI)NonAf (>60 ml/min/1.73 sqM) Glucose (74-99) mg/dL Calcium (8.4-10.2) mg/dL Magnesium (1.6-2.3) mg/dL Total Bilirubin (0.2-1.3) mg/dL AST (14-36) U/L ALT (4-34) U/L Alkaline Phosphatase (38-126) U/L Total Protein (6.3-8.2) g/dL Albumin (3.5-5.0) g/dL Lipase (23-300) U/L Urine Color Urine Appearance (Clear) Urine pH (5.0-8.0) Ur Specific [place] (1.001-1.035) Urine Protein (Negative) Urine Glucose (UA) (Negative) Urine Ketones (Negative) Urine Blood (Negative) Urine Nitrite (Negative) Urine Bilirubin (Negative) Urine Urobilinogen (<2.0) mg/dL Ur Leukocyte Esterase (Negative) Urine HCG, Qual Not Detected (Not Detectd) Salicylates mg/dL Urine Opiates Screen Not Detected (NotDetected) Ur Oxycodone Screen Not Detected (NotDetected) Urine Methadone Screen Not Detected (NotDetected) Ur Barbiturates Screen Not Detected (NotDetected) U Tricyclic Antidepress Not Detected (NotDetected) Ur Phencyclidine Scrn Not Detected (NotDetected) Ur Amphetamines Screen Not Detected (NotDetected) U Methamphetamines Scrn Not Detected (NotDetected) U Benzodiazepines Scrn Not Detected (NotDetected) Urine Cocaine Screen Not Detected (NotDetected) U Marijuana (THC) Screen Detected H (NotDetected) Serum Alcohol mg/dL Acetone, Qual (Negative) Disposition <Kavitha Redmond - Last Filed: 10/15/24 04:01> Is patient prescribed a controlled substance at d/c from ED?: No Time of Disposition: 05:36 <Spencer Okeefe - Last Filed: 10/15/24 05:36> Clinical Impression: Accidental overdose Disposition: HOME SELF-CARE Condition: Good Instructions (If sedation given, give patient instructions): Acute Nausea and Vomiting (ED) Referrals: Kristen Jacobsen DO [Primary Care Provider] - 1-2 days
[2024-10-15] MEDS: SODIUM CHLORIDE 0.9% 1,000 ML IV ONE (02:27)
[2024-10-15] MEDS: ONDANSETRON 4 MG/2 ML VIAL IVP STA (02:27)
[2024-10-15 02:30] LABS: Basophils # (A) 0.04 10*3/uL (0.00-0.10); Basophils % (A) 0.3 %; Eosinophils # (A) 0.21 10*3/uL (0.04-0.35); Eosinophils % (A) 1.5 %; HCT 36.1 % (37.2-46.3); HGB 12.6 g/dL (12.0-15.0); Lymphocytes # (A) 3.38 10*3/uL (0.90-5.00); Lymphocytes % (A) 23.4 %; MCH 30.3 pg (27.0-32.0); MCHC 34.9 g/dL (32.0-37.0); MCV 86.8 fL (80.0-97.0); Mean Platelet Volume 10.3 fL (9.5-12.2); Monocytes # (A) 1.14 10*3/uL (0.20-1.00); Monocytes % (A) 7.9 %; Neutrophils # (A) 9.61 10*3/uL (1.80-7.70); Neutrophils % (A) 66.5 %; Platelet Count 275 10*3/uL (140-440); RBC 4.16 10*6/uL (4.10-5.20); RDW 12.4 % (11.5-14.5); WBC 14.44 10*3/uL (4.50-10.00)
[2024-10-15 02:48] LABS: ALT 25 U/L (4-34); AST 27 U/L (14-36); African American GFR (CKD) >90 (>60 ml/min/1.73 sqM); Albumin 3.9 g/dL (3.5-5.0); Alcohol <10 mg/dL; Alkaline Phosphatase 58 U/L (38-126); Anion Gap 9 mmol/L; Blood Urea Nitrogen 15 mg/dL (7-17); Calcium 9.1 mg/dL (8.4-10.2); Carbon Dioxide 23 mmol/L (22-30); Chloride 107 mmol/L (98-107); Glucose 107 mg/dL (74-99); Lipase 81 U/L (23-300); Magnesium 1.7 mg/dL (1.6-2.3); Non-African American GFR(CKD) >90 (>60 ml/min/1.73 sqM); Potassium 3.5 mmol/L (3.5-5.1); Salicylate <1.0 mg/dL; Sodium 139 mmol/L (137-145); Total Bilirubin 0.6 mg/dL (0.2-1.3); Total Protein 6.2 g/dL (6.3-8.2)
[2024-10-15 04:25] LABS: Appearance,Urine Clear (Clear); Bilirubin,Urine Negative (Negative); Blood,Urine Negative (Negative); Color,Urine Yellow; Glucose,Urine (UA) Negative (Negative); Ketones,Urine 1+ (Negative); Nitrite,Urine Negative (Negative); PH, Urine 6.5 (5.0-8.0); Protein,Urine Negative (Negative); Specific Gravity,Urine 1.026 (1.001-1.035)
[2024-10-15 04:26] LABS: Leukocyte Esterase,Urine Negative (Negative)
[2024-10-15 05:02] LABS: Amphetamine Screen,Urine Not Detected (NotDetected); Barbiturate Screen,Urine Not Detected (NotDetected); Benzodiazepines Screen,Urine Not Detected (NotDetected); Cocaine Screen,Urine Not Detected (NotDetected); Methadone Screen, Urine Not Detected (NotDetected); Opiate Screen,Urine Not Detected (NotDetected); Oxycodone Screen, Urine Not Detected (NotDetected); Phencyclidine Screen,Urine Not Detected (NotDetected); Tricyclic Antidepressant,Urine Not Detected (NotDetected); Urn Cannabinoid Scrn Detected (NotDetected)
[2024-10-15 05:42] VITALS: BP 104/70; PULSE 69; RESP 18; TEMP 98.3
== END 2024-10-15 05:42 | disposition home or self-care (01) ==
LOC: EC 01:50
DX: T39.311A Poisoning by propionic acid derivatives, accidental (unintentional), initial encounter (principal); F17.200 Nicotine dependence, unspecified, uncomplicated
CPT/HCPCS: 36415; 80053; 82009; 83690; 83735; 85025; 81003; 81025; 80306; 80179; 99284; 96374; 96361; G0480; J2405; 80320